=== PATIENT | male | born 1960 | race Caucasian/White ===

== ENCOUNTER 2024-07-24 10:09 | Emergency (ER) | payer OTHER ==
--- OUTSIDE RECORDS SUMMARY | 2024-07-24 10:13 | XMS REPORT | Continuity of Care Document ---
Author Name Unknown Address [address] [facility] [address] [place] [address] [facility] thconnect Address [address] [facility]. 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 Name Role Phone Justyn ST, Jun Padilla Primary Care Physician Michelle ST, Hayder Hope Attending Clinician [phone] Connie Vernon MA Attending Clinician Unavailkim infante ARMSTRONG-HALEIGHLORA Attending Clinician Debra jeffers AHT_TRAN_DUC_N Attending Clinician Unavailable AHT_TRAN_DUC_N Admitting Clinician Unavailable Payers Payer Name Policy Type Policy Number Effective Date Expirati on Date Source [facility] ([facility]) [id number] 2021 00:00:00 Problems Condition Name Condition Details Condition Category Status Onset Date Resolution Date Last Treatment Date Treating Clinician Comments Source Hydrocele of testis Hydrocele of Testis Problem Active 2023-06 0-04 00:00: 00 [facility] Hydrocele Hydrocele Disease Active 9-16 00:00: 00 Lubna Wang Epic 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 sm Disease Active 9-16 00:00: 00 Memoria l Felipe Epic Mixed hyperlipid emia Mixed Hyperlipid emia Problem Active 8-09 00:00: 00 [facility] Swelling of scrotum Swelling of Scrotum Problem Active 8-09 00:00: 00 [facility] Active immunizati on Active Immunizati on Problem Active 8-09 00:00: 00 [facility] History of malignant neoplasm of rectum History of Malignant Neoplasm of Rectum Problem Active 8-09 00:00: 00 [facility] Adult health examinatio n Adult Health Examinatio n Problem Active 8 00:00: 00 [facility] Screening for malignant neoplasm of rectum Screening for Malignant Neoplasm of Rectum Problem Active 8-09 00:00: 00 [facility] Screening for malignant neoplasm of colon Screening for Malignant Neoplasm of Colon Problem Active 809 00:00: 00 [facility] Loose stool Loose Stool Problem Active 9-08 00:00: 00 [facility] Fatigue Fatigue Problem Active 7-14 00:00: 00 [facility] Screening for malignant neoplasm of skin Screening for Malignant Neoplasm of Skin Problem Active 6-06 00:00: 00 [facility] Hypogonadi sm Hypogonadi sm Problem Active 6-06 00:00: 00 [facility] Venereal disease screening Venereal Disease Screening Problem Active 2020-06 2- 00:00: 00 [facility] Screening for malignant neoplasm of prostate Screening for Malignant Neoplasm of Prostate Problem Active 2020-06 2- 00:00: 00 [facility] History of calculus of kidney History of Calculus of Kidney Problem Active 7-28 00:00: 00 [facility] Abnormal anal Papanicola ou smear Abnormal Anal Papanicola ou Smear Problem Active 2019-06 2-17 00:00: 00 [facility] Hyperchole sterolemia Hyperchole sterolemia Problem Active 2017-06 00:00: 00 [facility] Impotence Impotence Problem Active 2017-06 00:00: 00 [facility] History and physical examinatio n, annual for health maintenanc e History and Physical Examinatio n, Annual for Health Maintenanc e Problem Active 10-17 00:00: 00 [facility] 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 Active 2015-06 00:00: 00 [facility] Allergies, Adverse Reactions, Alerts Allergy Name Allergy Type Status Severity Reaction(s) Onset Date Inactive Date Treating Clinician Comments Source No Known Allergie s DA Active U 11-24 00:00: [facility] Social [facility] Social Habit Start Date Stop Date Quantity Comments Source Gender identity 2023-08-27 21:15:21 Identifies as male gender (finding) [facility] Sexual orientation [facility] Smoking Status Start Date Stop Date Source Never Smoker [facility] Tobacco smoking consumption unknown [facility] Medications Ordered Medication Name Filled Medication Name Start Date Stop Date Current Medication? Ordering Clinician Indication Dosage Frequency Signature (SIG) Comments Components Source Biktarvy 50-200-25 MG tablet Biktarvy 50-200-25 MG tablet 02-16 00:00: 00 Yes Lubna hogan [facility] testosteron e cypionate 200 mg/mL intramuscul ar oil Inject 0.5mg IM Q1.5weeks testosteron e cypionate 200 mg/mL intramuscul ar oil Inject 0.5mg IM Q1.5weeks No .5mL Q2W testostero ne cypionate 200 mg/mL intramuscu lar oil Inject 0.5mg IM Q1.5weeks [facility] sildenafil 50 mg tablet 1 tablet by mouth every 72 hours as needed 1 hour prior to sexual activity sildenafil 50 mg tablet 1 tablet by mouth every 72 hours as needed 1 hour prior to sexual activity No sildenafil 50 mg tablet 1 tablet by mouth every 72 hours as needed 1 hour prior to sexual activity [facility] Immunizations Ordered Immunization Name Filled Immunization Name Date Status Comments Source meningococcal MCV4O - 0.5 mL vial meningococcal MCV4O - 0.5 mL vial Unknown Completed [facility] Tdap Tdap Unknown Completed [facility] influenza, injectable, quadrivalent, preservative free influenza, injectable, quadrivalent, preservative free Unknown Completed [facility] pneumococcal conjugate PCV 13 pneumococcal conjugate PCV 13 Unknown Completed [facility] influenza, unspecified formulation influenza, unspecified formulation Unknown Completed [facility] pneumococcal polysaccharide PPV23 pneumococcal polysaccharide PPV23 Unknown Completed [facility] Vital Signs Vital Name Observation Time Observation Value Comments S mer Heart rate 2024-02-20 09:11:00 67 /min [facility] Body temperature 2024-02-20 09:11:00 36.5 Kathi [facility] Body weight 2024-02-20 09:11:00 [facility].94 [facility] in Arterial blood by Pulse oximetry 2024-02-20 09:11:00 97 /min [facility] BP Systolic 2024-01-13 00:00:00 124 mm[Hg] [facility] Body Weight 2024-01-13 00:00:00 156.4 [lb_av] A [facility] BP Diastolic 2024-01-13 00:00:00 75 mm[Hg] [facility] Height 2024-01-13 00:00:00 71 [in_i] [facility] BMI (Body Mass Index) 2024-01-13 00:00:00 21.8 kg/m2 [facility] BMI (Body Mass Index) 2023-07-15 00:00:00 21.5 kg/m2 [facility] Height 2023-07-15 00:00:00 71 [in_i] [facility] Body Weight 2023-07-15 00:00:00 154.2 [lb_av] A [facility] BP Diastolic 2023-07-15 00:00:00 86 mm[Hg] [facility] BP Systolic 2023-07-15 00:00:00 128 mm[Hg] [facility] Procedures Procedure Date / Time Performed Performing Clinician Source US, duplex, scrotum, complete 2024-01-13 00:00:00 [facility] US, echocardiogram 2024-01-13 00:00:00 AI [facility] US, duplex, carotid artery 2024-01-13 00:00:00 [facility] Colonoscopy 2017-06-06 00:00:00 [facility] Encounters Start Date/Time End Date/Time Encounter Type Admission Type Attending [facility] Care Facility Care Department Encounter ID Source 2024-06-15 00:00:00 2024-06-15 00:00:00 Lora Figueroa MD: [address] [place] [id number] , Ph. AHF [place] - AHF - [facility] [id number] [facility] 2024-04-12 00:00:00 2024-04-12 00:00:00 Lora Figueroa MD: [address] [place] [phone] , Ph. AHF CA - AHF - [facility]HT_[facility] [id number] [facility] 2024-03-15 00:00:00 2024-03-15 00:00:00 Lora Figueroa MD: [address] [phone] , Ph. AHF CA - AHF - [facility] [id number] [facility] 2024-03-09 00:00:00 2024-03-09 00:00:00 Lora Figueroa MD: [address] [place] [phone] , Ph. AHF CA - AHF - [facility] [id number] [facility] 2024-02-20 09:30:00 2024-02-20 09:48:02 Consult Hayder Martinez [facility] [place] , [facility] [id number] [facility] 2024-02-15 00:00:00 2024-02-15 11:12:35 Telephone Connie Vernon Christina [facility] [place] , [facility] [id number] Lubna Wang [facility] 2024-01-27 12:38:00 2024-01-27 23:59:00 Outpatient LORA CARRENOBANNER [id number] [facility] 2024-01-13 00:00:00 2024-01-13 00:00:00 Lora Figueroa MD: [address] [place] [phone] , Ph. [facility] CA - AHF - AHT_[facility] [id number] [facility] 2023-07-15 00:00:00 2023-07-15 00:00:00 Lora Figueroa MD: [address] [phone] , Ph. F CA - AHF - AHT_[facility] [id number] [facility] 2023-07-12 00:00:00 2023-07-12 00:00:00 Outpatient AHT_TRAN_DU C_N [facility] [id number] [facility] 2023-04-01 00:00:00 2023-04-01 00:00:00 Outpatient AHT_TRAN_DU C_N [facility] [id number] [facility] 2023-02-06 00:00:00 2023-02-06 00:00:00 Outpatient [facility] [id number] [facility] Results Test Description Test Time Test Comments Results Result Co mments Source [facility] [#/volume] (viral load) in Serum or Plasma by CAROL ANN with probe [id number] 00:00:00* Test Item Value Reference Range Interpretation Comme nts HIV 1 RNA [#/volume] (viral load) in Serum or Plasma by CAROL ANN with probe detection (test code = 18284-3) <20 HIV 1 RNA [Log #/volume] (vi ral load) in Serum or Plasma by CAROL ANN with probe detection (test code = 42041-2) COMMENT [facility] T4 and TSH panel - Serum or [id number] 00:00:00* Test Item Value Reference Range Interpretation Comme nts Thyrotropin [Units/volume] i n Serum or Plasma by Detection limit <= 0.005 mIU/L (test code = 50513-2) 0.701 uIU/mL 0.450-4.500 Thyroxine (T4) free [Mass/volume] in Serum or Plasma (test code = 3024-7) 1.28 NG/dL 0.82-1.77 [facility] (CD4) subset panel - [id number] 00:00:00* Test Item Value Reference Range Interpretation Comme nts CD3+CD4+ (T4 helper) cells [#/volume] in Blood (test code = 54307-1) 521 /uL 359-1519 CD3+CD4+ cells/100 cells in Blood (test code = 8123-2) 24.8 % 30.8-58.5 L Leukocytes [#/volume] in Blo od by Automated count (test code = 6690-2) 6.1 x10e3/uL 3.4-10.8 Erythrocytes [#/volume] in Blood by Automated count (test code = 789-8) 4.87 x10e6/uL 4.14-5.80 Hemoglobin [Mass/volume] in Blood (test code = 718-7) 14.5 g/dL 13.0-17.7 Hematocrit [Volume Fraction] of Blood by Automated count (test code = 4544-3) 44.6 % 37.5-51.0 Erythrocyte mean corpuscular volume [Entitic volume] by Automated count (test code = 787-2) 92 fL 79-97 Erythrocyte mean corpuscular hemoglobin [Entitic mass] by Automated count (test code = 785-6) 29.8 pg 26.6-33.0 Erythrocyte mean corpuscular hemoglobin concentration [Mass/volume] by Automated count (test code = 786-4) 32.5 g/dL 31.5-35.7 Erythrocyte distribution wid th [Ratio] by Automated count (test code = 788-0) 12.6 % 11.6-15.4 Platelets [#/volume] in Bloo d by Automated count (test code = 777-3) 257 x10e3/uL 150-450 Neutrophils/100 leukocytes i n Blood by Automated count (test code = 770-8) 50 % not estab. Lymphocytes/100 leukocytes i n Blood by Automated count (test code = 736-9) 35 % not estab. Monocytes/100 leukocytes in Blood by Automated count (test code = 5905-5) 10 % not estab. Eosinophils/100 leukocytes i n Blood by Automated count (test code = 713-8) 4 % not estab. Basophils/100 leukocytes in Blood by Automated count (test code = 706-2) 1 % not estab. Neutrophils [#/volume] in Bl ood by Automated count (test code = 751-8) 3.1 x10e3/uL 1.4-7.0 Lymphocytes [#/volume] in Bl ood by Automated count (test code = 731-0) 2.1 x10e3/uL 0.7-3.1 Monocytes [#/volume] in Bloo d by Automated count (test code = 742-7) 0.6 x10e3/uL 0.1-0.9 Eosinophils [#/volume] in Bl ood by Automated count (test code = 711-2) 0.2 x10e3/uL 0.0-0.4 Basophils [#/volume] in Bloo d by Automated count (test code = 704-7) 0.0 x10e3/uL 0.0-0.2 Immature granulocytes/100 leukocytes in Blood by Automated count (test code = 02357-1) 0 % not estab. Immature granulocytes [#/volume] in Blood by Automated count (test code = 28876-5) 0.0 x10e3/uL 0.0-0.1 [facility] 2000 panel - Serum or Plasma 2024-06-08 00:00:00* Test Item Value Reference Range Interpretation Comme nts Glucose [Mass/volume] in Ser um or Plasma (test code = 2345-7) 95 mg/dL 70-99 Urea nitrogen [Mass/volume] in Serum or Plasma (test code = 3094-0) 15 mg/dL 8-27 Creatinine [Mass/volume] in Serum or Plasma (test code = 2160-0) 1.22 mg/dL 0.76-1.27 Glomerular filtration rate/1.73 sq M.predicted [Volume Rate/Area] in Serum, Plasma or Blood by Creatinine-based formula (CKD-EPI 2020) (test code = 10297-5) 66 mL/min/1.73 >59 Urea nitrogen/Creatinine [Ma ss Ratio] in Serum or Plasma (test code = 3097-3) 12 10-24 Sodium [Moles/volume] in Ser um or Plasma (test code = 2951-2) 140 mmol/L 134-144 Potassium [Moles/volume] in Serum or Plasma (test code = 2823-3) 4.4 mmol/L 3.5-5.2 Chloride [Moles/volume] in Serum or Plasma (test code = 2075-0) 103 mmol/L 96-106 Carbon dioxide, total [Moles/volume] in Serum or Plasma (test code = 2027-9) 24 mmol/L 20-29 Calcium [Mass/volume] in Ser um or Plasma (test code = 33181-7) 9.4 mg/dL 8.6-10.2 Protein [Mass/volume] in Ser um or Plasma (test code = 2885-2) 7.5 g/dL 6.0-8.5 Albumin [Mass/volume] in Ser um or Plasma (test code = 1751-7) 4.4 g/dL 3.9-4.9 Globulin [Mass/volume] in Serum by calculation (test code = 20037-2) 3.1 g/dL 1.5-4.5 Bilirubin.total [Mass/volume ] in Serum or Plasma (test code = 1974-2) 0.4 mg/dL 0.0-1.2 Alkaline phosphatase [Enzymatic activity/volume] in Serum or Plasma (test code = 6768-6) 141 IU/L 44-121 H Aspartate aminotransferase [Enzymatic activity/volume] in Serum or Plasma (test code = 1920-8) 20 IU/L 0-40 Alanine aminotransferase [Enzymatic activity/volume] in Serum or Plasma (test code = 1742-6) 15 IU/L 0-44 [facility] FoundationCobalamin (Vitamin B12) and folate panel - Serum 2024-06-08 00:00:00* Test Item Value Reference Range Interpretation Comme nts Cobalamin (Vitamin B12) [Mass/volume] in Serum or Plasma (test code = 2132-9) 330 pg/mL 232-1245 Folate [Mass/volume] in Seru m or Plasma (test code = 2284-8) 7.7 NG/mL >3.0 [facility]ine [facility] (CK), [id number] 00:00:00* Test Item Value Reference Range Interpretation Comme nts Creatine kinase [Enzymatic activity/volume] in Serum or Plasma (test code = 2157-6) 78 U/L 41-331 Creatine kinase.MB [Mass/vol ume] in Serum or Plasma (test code = 40641-7) 1.2 NG/mL 0.0-10.4 [facility] total panel [Mass/volume] - Serum or [id number] 00:00:00* Test Item Value Reference Range Interpretation Comme nts Testosterone [Mass/volume] i n Serum or Plasma (test code = 2986-8) 366 NG/dL 264-916 Testosterone Free [Mass/volu me] in Serum or Plasma (test code = 2991-8) 3.9 pg/mL 6.6-18.1 L [facility] CenterProstate specific Ag [Mass/volume] in Serum or Plasma 2024-06-08 00:00:00* Test Item Value Reference Range Interpretation Comme nts Prostate specific Ag [Mass/v olume] in Serum or Plasma (test code = 2857-1) 0.8 NG/mL 0.0-4.0 [facility] Yxorwmcfzi36-Dcfjdzwoyxufjl D3+25-Hydroxyvitamin D2 [Mass/volume] in Serum or [id number] 00:00:00* Test Item Value Reference Range Interpretation Comme nts 25-Hydroxyvitamin D3+25-Hydroxyvitamin D2 [Mass/volume] in Serum or Plasma (test code = 38145-7) 42.1 NG/mL 30.0-100.0 [facility] CenterNuclear Ab [Presence] in [id number] 00:00:00* Test Item Value Reference Range Interpretation Comme nts Nuclear Ab [Presence] in Ser um (test code = 8061-4) NEGATIVE negative [facility] CenterCB W Auto Differential panel - [id number] 00:00:00* Test Item Value Reference Range Interpretation Comme nts Leukocytes [#/volume] in Blo od by Automated count (test code = 6690-2) 6.2 x10e3/uL 3.4-10.8 Erythrocytes [#/volume] in Blood by Automated count (test code = 789-8) 4.31 x10e6/uL 4.14-5.80 Hemoglobin [Mass/volume] in Blood (test code = 718-7) 13.3 g/dL 13.0-17.7 Hematocrit [Volume Fraction] of Blood by Automated count (test code = 4544-3) 39.9 % 37.5-51.0 Erythrocyte mean corpuscular volume [Entitic volume] by Automated count (test code = 787-2) 93 fL 79-97 Erythrocyte mean corpuscular hemoglobin [Entitic mass] by Automated count (test code = 785-6) 30.9 pg 26.6-33.0 Erythrocyte mean corpuscular hemoglobin concentration [Mass/volume] by Automated count (test code = 786-4) 33.3 g/dL 31.5-35.7 Erythrocyte distribution wid th [Ratio] by Automated count (test code = 788-0) 12.1 % 11.6-15.4 Platelets [#/volume] in Bloo d by Automated count (test code = 777-3) 247 x10e3/uL 150-450 Neutrophils/100 leukocytes i n Blood by Automated count (test code = 770-8) 51 % not estab. Lymphocytes/100 leukocytes i n Blood by Automated count (test code = 736-9) 37 % not estab. Monocytes/100 leukocytes in Blood by Automated count (test code = 5905-5) 7 % not estab. Eosinophils/100 leukocytes i n Blood by Automated count (test code = 713-8) 3 % not estab. Basophils/100 leukocytes in Blood by Automated count (test code = 706-2) 1 % not estab. Neutrophils [#/volume] in Bl ood by Automated count (test code = 751-8) 3.1 x10e3/uL 1.4-7.0 Lymphocytes [#/volume] in Bl ood by Automated count (test code = 731-0) 2.3 x10e3/uL 0.7-3.1 Monocytes [#/volume] in Bloo d by Automated count (test code = 742-7) 0.5 x10e3/uL 0.1-0.9 Eosinophils [#/volume] in Bl ood by Automated count (test code = 711-2) 0.2 x10e3/uL 0.0-0.4 Basophils [#/volume] in Bloo d by Automated count (test code = 704-7) 0.1 x10e3/uL 0.0-0.2 Immature granulocytes/100 leukocytes in Blood by Automated count (test code = 52096-8) 1 % not estab. Immature granulocytes [#/volume] in Blood by Automated count (test code = 96718-5) 0.0 x10e3/uL 0.0-0.1 [facility] FoundationComprehensive metabolic 2000 panel - Serum or Plasma 2024-04-07 00:00:00* Test Item Value Reference Range Interpretation Comme nts Glucose [Mass/volume] in Ser um or Plasma (test code = 2345-7) 123 mg/dL 70-99 H Urea nitrogen [Mass/volume] in Serum or Plasma (test code = 3094-0) 13 mg/dL 8-27 Creatinine [Mass/volume] in Serum or Plasma (test code = 2160-0) 1.10 mg/dL 0.76-1.27 Glomerular filtration rate/1.73 sq M.predicted [Volume Rate/Area] in Serum, Plasma or Blood by Creatinine-based formula (CKD-EPI 2020) (test code = 05262-6) 75 mL/min/1.73 >59 Urea nitrogen/Creatinine [Ma ss Ratio] in Serum or Plasma (test code = 3097-3) 12 10-24 Sodium [Moles/volume] in Ser um or Plasma (test code = 2951-2) 143 mmol/L 134-144 Potassium [Moles/volume] in Serum or Plasma (test code = 2823-3) 3.9 mmol/L 3.5-5.2 Chloride [Moles/volume] in Serum or Plasma (test code = 2075-0) 107 mmol/L 96-106 H Carbon dioxide, total [Moles/volume] in Serum or Plasma (test code = 2027-9) 23 mmol/L 20-29 Calcium [Mass/volume] in Ser um or Plasma (test code = 83860-2) 9.0 mg/dL 8.6-10.2 Protein [Mass/volume] in Ser um or Plasma (test code = 2885-2) 6.3 g/dL 6.0-8.5 Albumin [Mass/volume] in Ser um or Plasma (test code = 1751-7) 4.1 g/dL 3.9-4.9 Globulin [Mass/volume] in Serum by calculation (test code = 28207-2) 2.2 g/dL 1.5-4.5 Bilirubin.total [Mass/volume ] in Serum or Plasma (test code = 1975-2) 0.2 mg/dL 0.0-1.2 Alkaline phosphatase [Enzymatic activity/volume] in Serum or Plasma (test code = 6768-6) 122 IU/L 44-121 H Aspartate aminotransferase [Enzymatic activity/volume] in Serum or Plasma (test code = 1920-8) 17 IU/L 0-40 Alanine aminotransferase [Enzymatic activity/volume] in Serum or Plasma (test code = 1742-6) 9 IU/L 0-44 [facility] FoundationTestosterone free and total panel [Mass/volume] - Serum or [id number] 00:00:00* Test Item Value Reference Range Interpretation Comme nts Testosterone [Mass/volume] i n Serum or Plasma (test code = 2986-8) 542 NG/dL 264-916 Testosterone Free [Mass/volu me] in Serum or Plasma (test code = 2991-8) 7.6 pg/mL 6.6-18.1 [facility] FoundationProstate specific Ag [Mass/volume] in Serum or Plasma 2024-04-07 00:00:00* Test Item Value Reference Range Interpretation Comme nts Prostate specific Ag [Mass/v olume] in Serum or Plasma (test code = 2857-1) 0.7 NG/mL 0.0-4.0 [facility] Foundationelectrocardiogram interpretation*2024-01-13 10:00:39* Test Item Value Reference Range Interpretation Comme nts Rate & Rhythm (test code = Rate & Rhythm) Normal Sinus rhythm, HR 63 bpm QRS (test code = QRS) 88 ms CO Interval (test code = CO Interval) 104/140 ms QT Interval (test code = QT Interval) 396/405 ms [facility] FoundationChlamydia trachomatis and Neisseria gonorrhoeae rRNA panel - Specimen by CAROL ANN with probe [id number] 00:00:00* Test Item Value Reference Range Interpretation Comme nts Chlamydia trachomatis rRNA [Presence] in Specimen by CAROL ANN with probe detection (test code = 43868-4) NEGATIVE negative Neisseria gonorrhoeae rRNA [Presence] in Specimen by CAROL ANN with probe detection (test code = 03439-5) [facility]GATIVE negative [facility] [#/volume] (viral load) in Serum or Plasma by CAROL ANN with probe [id number] 00:00:00* Test Item Value Reference Range Interpretation Comme nts HIV 1 RNA [#/volume] (viral load) in Serum or Plasma by CAROL ANN with probe detection (test code = 40855-9) <20 HIV 1 RNA [Log #/volume] (vi ral load) in Serum or Plasma by CAROL ANN with probe detection (test code = 88833-6) COMMENT [facility] 2000 panel - [id number] 00:00:00 * Test Item Value Reference Range Interpretation Comme nts Hepatitis A virus Ab [Presen ce] in Serum by Immunoassay (test code = 62268-8) POSITIVE negative A Hepatitis A virus IgM Ab [Presence] in Serum or Plasma by Immunoassay (test code = 92463-8) NEGATIVE negative Hepatitis B virus surface Ag [Presence] in Serum or Plasma by Immunoassay (test code = 5196-1) NEGATIVE negative Hepatitis B virus surface Ab [Presence] in Serum (test code = 87161-8) REACTIVE Hepatitis B virus core Ab [Presence] in Serum or Plasma by Immunoassay (test code = 31775-2) NEGATIVE negative Laboratory comment [Text] in Report Narrative (test code = 19910-2) RFNOTM Interpretation and review of laboratory results (test code = 89478-6) [facility] Hepatitis C virus IgG Ab [Presence] in Serum or Plasma by Immunoassay (test code = 96069-9) NON REACTIVE non reactive Hepatitis C virus Ab [Presen ce] in Serum or Plasma by Immunoassay (test code = 22860-2) [facility] FoundationT-cell helper (CD4) subset panel - [id number] 00:00:00* Test Item Value Reference Range Interpretation Comme nts CD3+CD4+ (T4 helper) cells [#/volume] in Blood (test code = 23948-0) 540 /uL 359-1519 CD3+CD4+ cells/100 cells in Blood (test code = 8123-2) 21.6 % 30.8-58.5 L Leukocytes [#/volume] in Blo od by Automated count (test code = 6690-2) 7.6 x10e3/uL 3.4-10.8 Erythrocytes [#/volume] in Blood by Automated count (test code = 789-8) 4.76 x10e6/uL 4.14-5.80 Hemoglobin [Mass/volume] in Blood (test code = 718-7) 14.5 g/dL 13.0-17.7 Hematocrit [Volume Fraction] of Blood by Automated count (test code = 4544-3) 44.2 % 37.5-51.0 Erythrocyte mean corpuscular volume [Entitic volume] by Automated count (test code = 787-2) 93 fL 79-97 Erythrocyte mean corpuscular hemoglobin [Entitic mass] by Automated count (test code = 785-6) 30.5 pg 26.6-33.0 Erythrocyte mean corpuscular hemoglobin concentration [Mass/volume] by Automated count (test code = 786-4) 32.8 g/dL 31.5-35.7 Erythrocyte distribution wid th [Ratio] by Automated count (test code = 788-0) 12.5 % 11.6-15.4 Platelets [#/volume] in Bloo d by Automated count (test code = 777-3) 215 x10e3/uL 150-450 Neutrophils/100 leukocytes i n Blood by Automated count (test code = 770-8) 57 % not estab. Lymphocytes/100 leukocytes i n Blood by Automated count (test code = 736-9) 33 % not estab. Monocytes/100 leukocytes in Blood by Automated count (test code = 5905-5) 8 % not estab. Eosinophils/100 leukocytes i n Blood by Automated count (test code = 713-8) 1 % not estab. Basophils/100 leukocytes in Blood by Automated count (test code = 706-2) 1 % not estab. Neutrophils [#/volume] in Bl ood by Automated count (test code = 751-8) 4.4 x10e3/uL 1.4-7.0 Lymphocytes [#/volume] in Bl ood by Automated count (test code = 731-0) 2.5 x10e3/uL 0.7-3.1 Monocytes [#/volume] in Bloo d by Automated count (test code = 742-7) 0.6 x10e3/uL 0.1-0.9 Eosinophils [#/volume] in Bl ood by Automated count (test code = 711-2) 0.1 x10e3/uL 0.0-0.4 Basophils [#/volume] in Bloo d by Automated count (test code = 704-7) 0.0 x10e3/uL 0.0-0.2 Immature granulocytes/100 leukocytes in Blood by Automated count (test code = 74229-0) 0 % not estab. Immature granulocytes [#/volume] in Blood by Automated count (test code = 42085-2) 0.0 x10e3/uL 0.0-0.1 [facility] FoundationCom[facility] metabolic 2000 panel - Serum or Plasma 2024-01-03 00:00:00* Test Item Value Reference Range Interpretation Comme nts Glucose [Mass/volume] in Ser um or Plasma (test code = 2345-7) 98 mg/dL 70-99 Urea nitrogen [Mass/volume] in Serum or Plasma (test code = 3094-0) 15 mg/dL 8-27 Creatinine [Mass/volume] in Serum or Plasma (test code = 2160-0) 1.03 mg/dL 0.76-1.27 Glomerular filtration rate/1.73 sq M.predicted [Volume Rate/Area] in Serum, Plasma or Blood by Creatinine-based formula (CKD-EPI 2020) (test code = 88427-2) 81 mL/min/1.73 >59 Urea nitrogen/Creatinine [Ma ss Ratio] in Serum or Plasma (test code = 3097-3) 15 10-24 Sodium [Moles/volume] in Ser um or Plasma (test code = 2951-2) 138 mmol/L 134-144 Potassium [Moles/volume] in Serum or Plasma (test code = 2823-3) 5.2 mmol/L 3.5-5.2 Chloride [Moles/volume] in Serum or Plasma (test code = 2075-0) 104 mmol/L 96-106 Carbon dioxide, total [Moles/volume] in Serum or Plasma (test code = 2027-) 23 mmol/L 20-29 Calcium [Mass/volume] in Ser um or Plasma (test code = 70252-1) 9.2 mg/dL 8.6-10.2 Protein [Mass/volume] in Ser um or Plasma (test code = 2885-2) 6.9 g/dL 6.0-8.5 Albumin [Mass/volume] in Ser um or Plasma (test code = 1751-7) 4.4 g/dL 3.9-4.9 Globulin [Mass/volume] in Serum by calculation (test code = 54736-0) 2.5 g/dL 1.5-4.5 Bilirubin.total [Mass/volume ] in Serum or Plasma (test code = 1974-2) 0.4 mg/dL 0.0-1.2 Alkaline phosphatase [Enzymatic activity/volume] in Serum or Plasma (test code = 6768-6) 132 IU/L 44-121 H Aspartate aminotransferase [Enzymatic activity/volume] in Serum or Plasma (test code = 1920-8) 27 IU/L 0-40 Alanine aminotransferase [Enzymatic activity/volume] in Serum or Plasma (test code = 1742-6) 33 IU/L 0-44 [facility] FoundationUrinalysis complete W Reflex Culture panel - Urine 2024-01-03 00:00:00* Test Item Value Reference Range Interpretation Comme nts Specific gravity of Urine by Test strip (test code = 5811-5) 1.021 1.005-1.030 pH of Urine by Test strip (test code = 5803-2) 7.0 5.0-7.5 Color of Urine (test code = 5778-6) YELLOW yellow Appearance of Urine (test code = 5767-9) CLEAR clear Leukocyte esterase [Presence ] in Urine by Test strip (test code = 5799-2) NEGATIVE negative Protein [Presence] in Urine by Test strip (test code = 40169-9) TRACE negative/trace Glucose [Presence] in Urine by Test strip (test code = 60532-5) NEGATIVE negative Ketones [Presence] in Urine by Test strip (test code = 2514-8) NEGATIVE negative Hemoglobin [Presence] in Urine by Test strip (test code = 5794-3) NEGATIVE negative Bilirubin.total [Presence] i n Urine by Test strip (test code = 5770-3) NEGATIVE negative Urobilinogen [Mass/volume] i n Urine by Test strip (test code = 41282-5) 0.2 mg/dL 0.2-1.0 Nitrite [Presence] in Urine by Test strip (test code = 5802-4) NEGATIVE negative Microscopic observation [Identifier] in Urine sediment by Light microscopy (test code = 91104-8) SEE BELOW: Leukocytes [#/area] in Urine sediment by Microscopy high power field (test code = 5821-4) 0-5 0-5 Erythrocytes [#/area] in Urine sediment by Microscopy high power field (test code = 82280-5) 0-2 0-2 Epithelial cells [#/area] in Urine sediment by Microscopy high power field (test code = 5787-7) NONE SEEN 0-10 Casts [Presence] in Urine sediment by Light microscopy (test code = 37724-5) NONE SEEN none seen Unidentified crystals [Presence] in Urine sediment by Light microscopy (test code = 5783-6) PRESENT n/a A Crystals [type] in Urine sediment by Light microscopy (test code = 5782-8) CALCIUM OXALATE n/a Bacteria [#/area] in Urine sediment by Microscopy high power field (test code = 5769-5) NONE SEEN none seen/few urinalysis reflex (test code = urinalysis reflex) NOFLEX [facility] FoundationLipid 1996 panel - Serum or [id number] 00:00:00 * Test Item Value Reference Range Interpretation Comme nts Cholesterol [Mass/volume] in Serum or Plasma (test code = 2093-3) 232 mg/dL 100-199 H Triglyceride [Mass/volume] i n Serum or Plasma (test code = 2571-8) 127 mg/dL 0-149 Cholesterol in HDL [Mass/vol ume] in Serum or Plasma (test code = 2085-9) 57 mg/dL >39 Cholesterol in VLDL [Mass/vo lume] in Serum or Plasma by calculation (test code = 79949-7) 23 mg/dL 5-40 Cholesterol in LDL [Mass/vol ume] in Serum or Plasma by calculation (test code = 42423-3) 152 mg/dL 0-99 H [facility] FoundationHIV 1 RNA [#/volume] (viral load) in Serum or Plasma by CAROL ANN with probe [id number] 00:00:00* Test Item Value Reference Range Interpretation Comme nts HIV 1 RNA [#/volume] (viral load) in Serum or Plasma by CAROL ANN with probe detection (test code = 37519-9) <20 HIV 1 RNA [Log #/volume] (vi ral load) in Serum or Plasma by CAROL ANN with probe detection (test code = 70600-2) [facility] - [id number] 00:00:00 * Test Item Value Reference Range Interpretation Comme nts Hepatitis A virus Ab [Presen ce] in Serum by Immunoassay (test code = 84307-5) positive negative A Hepatitis A virus IgM Ab [Presence] in Serum or Plasma by Immunoassay (test code = 90908-9) negative negative Hepatitis B virus surface Ag [Presence] in Serum or Plasma by Immunoassay (test code = 5196-1) negative negative Hepatitis B virus surface Ab [Presence] in Serum (test code = 88334-3) reactive Hepatitis B virus core Ab [Presence] in Serum or Plasma by Immunoassay (test code = 36949-8) negative negative Laboratory comment [Text] in Report Narrative (test code = 13574-0) rfnotm Interpretation and review of laboratory results (test code = 83136-1) [facility] Hepatitis C virus IgG Ab [Presence] in Serum or Plasma by Immunoassay (test code = 62401-7) non reactive non reactive Hepatitis C virus Ab [Presen ce] in Serum or Plasma by Immunoassay (test code = 79674-9) [facility] - [id number] 00:00:00* Test Item Value Reference Range Interpretation Comme nts CD3+CD4+ (T4 helper) cells [#/volume] in Blood (test code = 96725-7) 745 /uL 359-1519 CD3+CD4+ cells/100 cells in Blood (test code = 8123-2) 25.7 % 30.8-58.5 L Leukocytes [#/volume] in Blo od by Automated count (test code = 6690-2) 5.3 x10e3/uL 3.4-10.8 Erythrocytes [#/volume] in Blood by Automated count (test code = 789-8) 4.51 x10e6/uL 4.14-5.80 Hemoglobin [Mass/volume] in Blood (test code = 718-7) 14.0 g/dL 13.0-17.7 Hematocrit [Volume Fraction] of Blood by Automated count (test code = 4544-3) 42.1 % 37.5-51.0 Erythrocyte mean corpuscular volume [Entitic volume] by Automated count (test code = 787-2) 93 fL 79-97 Erythrocyte mean corpuscular hemoglobin [Entitic mass] by Automated count (test code = 785-6) 31.0 pg 26.6-33.0 Erythrocyte mean corpuscular hemoglobin concentration [Mass/volume] by Automated count (test code = 786-4) 33.3 g/dL 31.5-35.7 Erythrocyte distribution wid th [Ratio] by Automated count (test code = 788-0) 12.7 % 11.6-15.4 Platelets [#/volume] in Bloo d by Automated count (test code = 777-3) 203 x10e3/uL 150-450 Neutrophils/100 leukocytes i n Blood by Automated count (test code = 770-8) 33 % not estab. Lymphocytes/100 leukocytes i n Blood by Automated count (test code = 736-9) 55 % not estab. Monocytes/100 leukocytes in Blood by Automated count (test code = 5905-5) 8 % not estab. Eosinophils/100 leukocytes i n Blood by Automated count (test code = 713-8) 3 % not estab. Basophils/100 leukocytes in Blood by Automated count (test code = 706-2) 1 % not estab. Neutrophils [#/volume] in Bl ood by Automated count (test code = 751-8) 1.8 x10e3/uL 1.4-7.0 Lymphocytes [#/volume] in Bl ood by Automated count (test code = 731-0) 2.9 x10e3/uL 0.7-3.1 Monocytes [#/volume] in Bloo d by Automated count (test code = 742-7) 0.4 x10e3/uL 0.1-0.9 Eosinophils [#/volume] in Bl ood by Automated count (test code = 711-2) 0.2 x10e3/uL 0.0-0.4 Basophils [#/volume] in Bloo d by Automated count (test code = 704-7) 0.0 x10e3/uL 0.0-0.2 Immature granulocytes/100 leukocytes in Blood by Automated count (test code = 23566-7) 0 % not estab. Immature granulocytes [#/volume] in Blood by Automated count (test code = 26044-2) 0.0 x10e3/uL 0.0-0.1 [facility] FoundationComprehensive metabolic 2000 panel - Serum or Plasma 2023-07-02 00:00:00* Test Item Value Reference Range Interpretation Comme nts Glucose [Mass/volume] in Ser um or Plasma (test code = 2345-7) 90 mg/dL 70-99 Urea nitrogen [Mass/volume] in Serum or Plasma (test code = 3094-0) 18 mg/dL 8-27 Creatinine [Mass/volume] in Serum or Plasma (test code = 2160-0) 1.03 mg/dL 0.76-1.27 Glomerular filtration rate/1.73 sq M.predicted [Volume Rate/Area] in Serum, Plasma or Blood by Creatinine-based formula (CKD-EPI 2020) (test code = 06625-6) 81 mL/min/1.73 >59 Urea nitrogen/Creatinine [Ma ss Ratio] in Serum or Plasma (test code = 3097-3) 17 10-24 Sodium [Moles/volume] in Ser um or Plasma (test code = 2951-2) 141 mmol/L 134-144 Potassium [Moles/volume] in Serum or Plasma (test code = 2823-3) 4.0 mmol/L 3.5-5.2 Chloride [Moles/volume] in Serum or Plasma (test code = 5-0) 105 mmol/L 96-106 Carbon dioxide, total [Moles/volume] in Serum or Plasma (test code = 2027-) 24 mmol/L 20-29 Calcium [Mass/volume] in Ser um or Plasma (test code = 55923-7) 9.1 mg/dL 8.6-10.2 Protein [Mass/volume] in Ser um or Plasma (test code = 2885-2) 6.9 g/dL 6.0-8.5 Albumin [Mass/volume] in Ser um or Plasma (test code = 1751-7) 4.2 g/dL 3.9-4.9 Globulin [Mass/volume] in Serum by calculation (test code = 66446-1) 2.7 g/dL 1.5-4.5 Albumin/Globulin [Mass Ratio ] in Serum or Plasma (test code = 1759-0) 1.6 1.2-2.2 Bilirubin.total [Mass/volume ] in Serum or Plasma (test code = 1975-2) 0.4 mg/dL 0.0-1.2 Alkaline phosphatase [Enzymatic activity/volume] in Serum or Plasma (test code = 6768-6) 118 IU/L 44-121 Aspartate aminotransferase [Enzymatic activity/volume] in Serum or Plasma (test code = 1920-8) 17 IU/L 0-40 Alanine aminotransferase [Enzymatic activity/volume] in Serum or Plasma (test code = 1742-6) 18 IU/L 0-44 [facility] FoundationUrinalysis complete W Reflex Culture panel - Urine 2023-07-02 00:00:00* Test Item Value Reference Range Interpretation Comme nts Specific gravity of Urine by Test strip (test code = 5811-5) 1.023 1.005-1.030 pH of Urine by Test strip (t est code = 5803-2) 6.0 5.0-7.5 Color of Urine (test code = 5778-6) yellow yellow Appearance of Urine (test co de = 5767-9) clear clear Leukocyte esterase [Presence ] in Urine by Test strip (test code = 5799-2) negative negative Protein [Presence] in Urine by Test strip (test code = 04186-0) negative negative/trace Glucose [Presence] in Urine by Test strip (test code = 96359-4) negative negative Ketones [Presence] in Urine by Test strip (test code = 2514-8) negative negative Hemoglobin [Presence] in Uri ne by Test strip (test code = 5794-3) negative negative Bilirubin.total [Presence] i n Urine by Test strip (test code = 5770-3) negative negative Urobilinogen [Mass/volume] i n Urine by Test strip (test code = 00902-3) 0.2 mg/dL 0.2-1.0 Nitrite [Presence] in Urine by Test strip (test code = 5802-4) negative negative Microscopic observation [Identifier] in Urine sediment by Light microscopy (test code = 58983-9) see below: Leukocytes [#/area] in Urine sediment by Microscopy high power field (test code = 5821-4) 0-5 0-5 Erythrocytes [#/area] in Uri ne sediment by Microscopy high power field (test code = 29355-4) none seen 0-2 Epithelial cells [#/area] in Urine sediment by Microscopy high power field (test code = 5787-7) none seen 0-10 Casts [Presence] in Urine se diment by Light microscopy (test code = 56840-5) none seen none seen Bacteria [#/area] in Urine sediment by Microscopy high power field (test code = 5769-5) none seen none seen/few urinalysis reflex (test code = urinalysis reflex) noflex [facility] FoundationLipid 1996 panel - Serum or [id number] 00:00:00 * Test Item Value Reference Range Interpretation Comme nts Cholesterol [Mass/volume] in Serum or Plasma (test code = 2093-3) 181 mg/dL 100-199 Triglyceride [Mass/volume] i n Serum or Plasma (test code = 2571-8) 187 mg/dL 0-149 H Cholesterol in HDL [Mass/vol ume] in Serum or Plasma (test code = 2085-9) 41 mg/dL >39 Cholesterol in VLDL [Mass/vo lume] in Serum or Plasma by calculation (test code = 01354-0) 33 mg/dL 5-40 Cholesterol in LDL [Mass/vol ume] in Serum or Plasma by calculation (test code = 31555-5) 107 mg/dL 0-99 H [facility] FoundationTestosterone free and total panel [Mass/volume] - Serum or [id number] 00:00:00* Test Item Value Reference Range Interpretation Comme nts Testosterone [Mass/volume] i n Serum or Plasma (test code = 2986-8) 208 NG/dL 264-916 L Testosterone Free [Mass/volu me] in Serum or Plasma (test code = 2991-8) 1.8 pg/mL 6.6-18.1 L [facility] FoundationProstate specific Ag [Mass/volume] in Serum or Plasma 2023-07-02 00:00:00* Test Item Value Reference Range Interpretation Comme nts Prostate specific Ag [Mass/v olume] in Serum or Plasma (test code = 2857-1) 0.5 NG/mL 0.0-4.0 [facility] Notes Date/Time Note Provider Source [id number] 10:00:16 [place] [id number] 10:00:16* Hayder Martinez MD - 02/20/2024 9:30 AM CDT UROLOGY: Hayder Martinez ASSESSMENT/PLAN Problem List Items Addressed This Visit Hydrocele - Primary Male hypogonadism PMH: HIV 1. Hydrocele - had TON at 01/2024 small right hydrocele, no masses - Discussed risks and benefits of hydrocelectomy and reasons for surgery; on exam he has small right hydrocele and not bothered, had it for 6 months - If enlarges or issues with infections then follow up but otherwise he elects to observe for now 2. Male hypogonadism - 208 at [facility] - been low in past had been on cream but no effect and too expensive - he will call if he wants to try injections in which we will repeat labs 3. PSA - PSA 0.5 at [facility] No results found for: "PSA", "CREATININE" Roopa Hills is a 63 y.o. male with right hydrocele. Started 6 months ago. Unchanged in size. No pain. Denies trauma. Also has fatigue, decreased muscle mass and libido. Been on TRT in the past. Patient Active Problem List Diagnosis Date Noted Hydrocele 02/20/2024 Male hypogonadism 02/20/2024 PMH/PSH: Reviewed Allergies: Reviewed Social History: Reviewed Family History: Reviewed ROS- Negative for 10 systems besides what was stated in the HPI. Objective EXAM: General: No acute distress Head: Atraumatic Eyes: Conjunctiva clear Neck: Supple Respirations: even and unlabored Extremities: Warm and well perfused Skin: Dry, intact No results found for: "NA", "K", "CL", "CO2", "BUN", "CREATININE" No results found for: "WBC", "HGB", "HCT", "MCV", "PLT" Hayder Martinez MD [facility] CenterFgygrda0034-67-17 10:00:16 [facility] CenterXcrwerz8969-08-11 11:12:43Upcoming Encounters Health Maintenance Due Date Last Done Comments CT Colonography 1959 FIT-DNA 1959 FIT 1959 FOBT 1960 Lipid Panel 1960 Medicare Initial Physical (IPPE) 1960 Sigmoidoscopy 1959 DTaP/Tdap/Td Vaccines (1 - Tdap) 1978 Zoster Vaccines (1 of 2) 2009 Respiratory Syncytial Virus (RSV) or >=60 (1 - 1-dose 60+ series) 2019 Influenza Vaccine (#1) 2024 Colonoscopy 09/03/2024 09/03/2014, 09/03/2014 Colorectal Cancer Screening 09/03/2024 HIB Vaccines Aged Out No longer eligi ble based on patient's age to complete this topic HPV Vaccines Aged Out No longer eligi ble based on patient's age to complete this topic Hepatitis A Vaccines Aged Out No long er eligible based on patient's age to complete this topic Hepatitis B Vaccines Aged Out No long er eligible based on patient's age to complete this topic IPV Vaccines Aged Out No longer eligi ble based on patient's age to complete this topic Meningococcal Vaccine Aged Out No yazmni jorgito eligible based on patient's age to complete this topic Pneumococcal Vaccine: Pediatrics (0 to 5 Years) and At-Risk Patients (6 to 64 Years) Aged Out No longer eligible b ased on patient's age to complete this topic Rotavirus Vaccines Aged Out No longer eligible based on patient's age to complete this topic [facility] CenterBodkvli2167-05-30 11:12:43 [facility] CenterGhyhaze5285-70-48 11:11:41 Pt called to see if we have scrotal US results, received. Provided pt with fax number for PSA results. [facility] CenterVshrztv1352-61-54 12:18:[id number] [facility] PATIENT NAME: ROOPA HILLS ADMIT DATE: 11/30/18 ACCOUNT NO: [id number] ROOM NO: AGE: 58 REPORT TYPE: ENDOSCOPY REPORT SEX: M DATE OF : 58 ADMITTING PHYSICIAN: ATTENDING PHYSICIAN:Mor Faith MD Patient Name: Roopa Hills Attending MD: Mor Faith MD Procedure Date: 11/30/2018 12:18 PM Date of : 1960 Procedure: Colonoscopy Pre Procedure Diagnosis: Personal history of malignant rectal neoplasm, Last colonoscopy: 2015 Assistants: Mor Faith MD Referring MD: Jun Alejandra, Anesthesia: Monitored Anesthesia Care Procedure: Pre-Anesthesia Assessment: - Prior to the procedure, a History and Physical was performed, and patient medications and allergies were reviewed. The patient's tolerance of previous anesthesia was also reviewed. The risks and benefits of the procedure and the sedation options and risks were discussed with the patient. All questions were answered, and informed consent was obtained. Prior Anticoagulants: The patient has taken no previous anticoagulant or antiplatelet agents. ASA Grade Assessment: III - A patient with severe systemic disease. After reviewing the risks and benefits, the patient was deemed in satisfactory condition to undergo the procedure. The benefits, risks, and alternatives to the procedure were discussed and informed consent was obtained from the patient. I've assesed the patient on this date and reviewed the medical history, drug history, and previous anesthesia experience. After obtaining informed consent, the scope was passed under direct vision. Throughout the procedure, the patient's blood pressure, pulse, and oxygen saturations were monitored continuously. The Colonoscope was introduced through the anus and advanced to the cecum, identified by the appendiceal orifice. The colonoscopy was performed without difficulty. The patient tolerated the procedure well. The quality of the bowel preparation was good. Post Procedure Findings: The digital rectal exam was normal. PATIENT NAME: ROOPA HILLS There was evidence of a prior end-to-end colo-colonic anastomosis in the recto-sigmoid colon. This was patent. Complications: No immediate complications. Estimated Blood Loss: Estimated blood loss was minimal. Post Procedure Diagnosis: - Patent end-to-end colo-colonic anastomosis. - No specimens collected. Recommendation: - Patient has a contact number available for emergencies. The signs and symptoms of potential delayed complications were discussed with the patient. Return to normal activities tomorrow. Written discharge instructions were provided to the patient. - Discharge patient to home. - Resume previous diet. - Continue present medications. - Repeat colonoscopy in 5 years for surveillance. - Return to my office in 2 weeks. Mor Faith MD 11/30/2018 12:58:18 PM This report has been signed electronically. Number of Addenda: 0 Note Initiated On: 11/30/2018 12:18 PM Procedure Code(s): --- Professional --- 90646, Colonoscopy, flexible; diagnostic, including collection of specimen(s) by brushing or washing, when performed (separate procedure) Diagnosis Code(s): --- Professional --- Z98.0, Intestinal bypass and anastomosis status Z85.048, Personal history of other malignant neoplasm of rectum, rectosigmoid junction, and anus CPT copyright 2017 [employer]. All rights reserved. The codes documented in this report are preliminary and upon inpatient coder review may be revised to meet current compliance requirements. Scope In: Scope Out: at 1258 PATIENT NAME: REINIERROOPA
[2024-07-24] MEDS ORDERED: MORPHINE 4 MG/ML SYR ONE ×2 (10:29→14:24)
[2024-07-24] MEDS ORDERED: TAMSULOSIN 0.4 MG SR CAP ONE (10:29)
[2024-07-24] MEDS ORDERED: ONDANSETRON 4 MG/2 ML VIAL ONE (10:29)
[2024-07-24] MEDS ORDERED: MAGNESIUM SULFATE 1 gm IVPB 1 GM/100 ML BAG IV ONE (10:30)
[2024-07-24 10:56] LABS: Absolute Lymphocytes (CBC) 1.5 K/uL (0.7-4.9); Absolute Monocytes 0.4 K/uL (0.1-1.3); Basophils % 0.3 % (0-1.3); Eosinophils % 0.5 % (0-4.4); Hematocrit 47.3 % (39.6-49.0); Hemoglobin 15.5 g/dL (13.6-17.9); Lymphocytes % 16.6 % (15.3-44.8); MCH 30.3 pg (27.0-35.0); MCHC 32.7 g/dL (32.0-36.0); MCV 92.5 fL (80-100); MPV 8.3 fL (7.6-11.3); Monocytes % 4.7 % (3.3-12.3); Neutrophils % 77.9 % (41.7-73.7); Nucleated Red Blood Cells % 0.1 % (0-0); Platelets 311 thou/uL (152-406); RBC Red Blood Cell Count 5.12 M/uL (4.33-5.43); Red Cell Distribution Width 14.2 % (12.1-15.2)
[2024-07-24 11:01] LABS: Anion Gap 5.3 mEq/L (5.0-15.0); Potassium 4.3 mEq/L (3.5-5.1)
--- NOTE | 2024-07-24 11:12 | RAD REPORT ---
EXAMINATION: Stone Protocol CLINICAL INDICATION: Abdominal pain. Left flank pain TECHNIQUE: CT abdomen and pelvis was performed, without IV contrast, as per department protocol. Oral contrast not given. Axial, sagittal and coronal reconstructions were obtained. One or more of the following dose reduction techniques were used: Automated exposure control, adjustment of the mA and k V according to the patient size, and iterative reconstruction. Unless otherwise specified, incidental findings do not require dedicated imaging follow-up. COMPARISON: No prior exam. FINDINGS: The lack of intravenous and oral contrast limits the sensitivity of this exam for evaluation of solid visceral organs, vascular structures, and bowel Multiple, bilateral renal calculi. Mild to moderate left hydronephrosis. Submillimeter calculus mid left ureter. Stranding within the adjacent ureteral fat. Liver, spleen, pancreas and adrenals grossly normal No evidence of diverticulitis. Prostatic calcifications IMPRESSION: Bilateral renal calculi 7 mm calculus mid left ureter resulting in mild to moderate hydronephrosis
--- NOTE | 2024-07-24 14:54 | EDPHYS ---
Physician Documentation [facility] Name: Abraham Craig Age: 64 yrs Sex: Male : 1960 Arrival Date: 07/24/2024 Time: 10:09 Bed 6 Private MD: ED Physician Drake Church HPI: 07/24 10:22 This 64 yrs old Male presents to ER via Unassigned with complaints of Possible Kidney rn Stone. 10:22 The patient complains of pain in the left mid back. Onset: The symptoms/episode rn began/occurred this morning. Modifying factors: The symptoms are alleviated by nothing. the symptoms are aggravated by nothing. Severity of pain: At its worst the pain was moderate in the emergency department the pain is unchanged. The patient has experienced similar episodes in the past. Patient reports left flank pain that began this morning. Identical to previous history of kidney stones. No fever or chills. No vomiting. No hematuria. There is some radiation to the right inguinal region. Has been able to pass all stones except 1 in the past.. Historical: - Allergies: 10:24 No Known Allergies; iw - PMHx: 10:24 HIV positive; Kidney stone; iw - PSHx: 10:24 None; iw - Immunization history:: Adult Immunizations not up to date. - Infectious Disease History:: Denies. - Family history:: not pertinent. - Social history:: Smoking status: Patient denies any tobacco usage or history of. - Hospitalizations: : No recent hospitalization is reported. ROS: 10:22 Constitutional: Negative for fever, chills, and weight loss, Cardiovascular: Negative rn for chest pain, palpitations, and edema, Respiratory: Negative for shortness of breath, cough, wheezing, and pleuritic chest pain, Abdomen/GI: Positive for left lower quadrant abdominal pain Back: Positive for left flank pain MS/Extremity: Negative for injury and deformity, Skin: Negative for injury, rash, and discoloration, Neuro: Negative for headache, weakness, numbness, tingling, and seizure, Exam: 10:22 Constitutional: This is a well developed, well nourished patient who is awake, alert, rn appears uncomfortable, grabbing left flank Cardiovascular: Regular rate and rhythm. No pulse deficits. Respiratory: No increased work of breathing, no retractions or nasal flaring. Abdomen/GI: Soft, nontender, no peritoneal signs Back: No CVA tenderness Vital Signs: 10:23 BP 128 / 90; Pulse 65; Resp 16; Temp 97.6; Pulse Ox 100% ; Weight 68.04 kg; Height 5 iw ft. 10 in. ; Pain 8/10; 12:00 BP 112 / 68; Pulse 59; Resp 18; Pulse Ox 100% ; ph 13:00 BP 114 / 66; Pulse 63; Resp 18; Pulse Ox 99% on R/A; ph 14:28 BP 113 / 63; Pulse 73; Resp 18; Pulse Ox 99% on R/A; ph 10:23 Body Mass Index 21.52 (68.04 kg, 177.8 cm) iw 10:23 Pain Scale: Adult iw MDM: 10:13 Medical Screening Exam initiated rn 14:52 Differential diagnosis: nephrolithiasis, UTI. Data reviewed: vital signs, nurses notes, cyanide furnace operator test result(s), radiologic studies, CT scan, and as a result, I will discharge patient. Counseling: I had a detailed discussion with the patient and/or guardian regarding the historical points, exam findings, and any diagnostic results supporting the discharge/admit diagnosis, lab results, radiology results, the need for outpatient follow up, to return to the emergency department if symptoms worsen or persist or if there are any questions or concerns that arise at home. Response to treatment: the patient's symptoms have markedly improved after treatment, and as a result, I will discharge patient. Special discussion: I discussed with the patient/guardian in detail that at this point there is no indication for admission to the hospital. It is understood, however, that if the symptoms persist or worsen the patient needs to return immediately for re-evaluation. ED course: Patient with 7 mm left mid ureteral stone. Patient reports has been able to pass the majority of his stones except for 1. Pain controlled, will discharge home and attempt passage at home with as needed medications. Patient agrees with this plan and return precautions given and understood.. 07/24 10:21 Order name: CBC with Diff; Complete Time: 11:12 rn 07/24 10:21 Order name: Basic Metabolic Panel; Complete Time: 11:12 rn 07/24 10:13 Order name: CT Stone Protocol; Complete Time: 11: rn 07/24 10:21 Order name: IV Start; Complete Time: 10:45 rn Administered Medications: 10:45 Drug: morphine IVP or IV 4 mg IVP once over 4 mins Route: IVP; Infused Over: 4 mins; kc6 Site: right antecubital; 11:30 Follow up: Response: No adverse reaction; Pain is decreased kc6 10:45 Drug: Magnesium Sulfate IVPB 1 grams IVPB once over 1 hrs Route: IVPB; Infused Over: 1 kc6 hrs; Site: right antecubital; 15:53 Follow up: Response: No adverse reaction; IV Status: Completed infusion; IV Intake: kc6 100ml 10:45 Drug: Flomax PO 0.4 mg PO once Route: PO; kc6 11:30 Follow up: Response: No adverse reaction kc6 10:45 Drug: Ondansetron IVP 4 mg IVP once; over 2 minutes Route: IVP; Site: right antecubital;kc6 11:30 Follow up: Response: No adverse reaction kc6 14:27 Not Given (Other Intervention Used): morphineor iv 2 mg IVP once over 4 mins ph 14:27 Drug: morphine IVP or IV 4 mg IVP once over 4 mins Route: IVP; Infused Over: 4 mins; ph Site: right antecubital; 15:53 Follow up: Response: No adverse reaction; Pain is decreased; RASS: Alert and Calm (0) kc6 Disposition Summary: 07/24/24 14:53 Discharge Ordered Notes: Location: Home rn Problem: new rn Symptoms: have improved rn Condition: Stable rn Diagnosis - Urinary calculus, unspecified rn Followup: rn - With: Private Physician - When: As needed - Reason: Recheck today's complaints, Re-evaluation by your physician Discharge Instructions: - Discharge Summary Sheet rn - Kidney Stones rn - Renal Colic rn Forms: - Medication Reconciliation Form rn - Antibiotic referral rn - Prescription Opioid Use rn - Patient Portal Instructions rn - Leadership Thank You Letter rn Prescriptions: - Flomax 0.4 mg Oral capsule - take 1 capsule ORAL route every 24 hours As needed; 10 capsule; Refills: 0, rn Product Selection Permitted - ondansetron 4 mg Oral Tablet,disintegrating - take 1 tablet ORAL route every 8 hours As needed; 12 tablet; Refills: 0, rn Product Selection Permitted - Cipro 500 mg Oral Tablet - take 1 tablet ORAL route every 12 hours for 7 days; 14 tablet; Refills: 0, rn Product Selection Permitted - Tramadol 50 mg Oral Tablet - take 1 tablet ORAL route every 8 hours as needed; 12 tablet; Refills: 0, rn Product Selection Permitted Signatures: Dispatcher [employer] EDSherry Glass RN Drake Cordova MD MD rn Hall, Patricia, RN RN [facility], FATOUMATA Cates RN kc6 Corrections: (The following items were deleted from the chart) 10: 10:13 Urinalysis+U.LAB.BRZ ordered. EDMS EDMS 10: 10:13 Stone Protocol+CT.RAD.BRZ ordered. EDMS EDMS
--- NOTE | 2024-07-24 14:54 | ER ---
Nurse's Notes [facility] Name: Abraham Craig Age: 64 yrs Sex: Male : 1960 Arrival Date: 07/24/2024 Time: 10:09 Bed 6 Private MD: Diagnosis: Urinary calculus, unspecified Presentation: 07/24 10:23 Chief complaint: Patient states: left sided kidney stone, has hx of kidney stones , iw pain started this morning. Coronavirus screen: At this time, the client does not indicate any symptoms associated with coronavirus-19. Ebola Screen: No symptoms or risks identified at this time. Initial Sepsis Screen: Does the patient meet any 2 criteria? No. Patient's initial sepsis screen is negative. Does the patient have a suspected source of infection?. Risk Assessment: Do you want to hurt yourself or someone else? Patient reports no desire to harm self or others. Onset of symptoms was July 24, 2024. 10:23 Method Of Arrival: Ambulatory iw 10:23 Acuity: ZORAN 3 iw Historical: - Allergies: 10:24 No Known Allergies; iw - PMHx: 10:24 HIV positive; Kidney stone; iw - PSHx: 10:24 None; iw - Immunization history:: Adult Immunizations not up to date. - Infectious Disease History:: Denies. - Family history:: not pertinent. - Social history:: Smoking status: Patient denies any tobacco usage or history of. - Hospitalizations: : No recent hospitalization is reported. Screenin:46 [facility] ED Fall Risk Assessment (Adult) History of falling in the last 3 months, kc6 including since admission No falls in past 3 months (0 pts) Confusion or Disorientation No (0 pts) Intoxicated or Sedated No (0 pts) Impaired Gait No (0 pts) Mobility Assist Device Used No (0 pt) Altered Elimination No (0 pt) Score/Fall Risk Level 0 - 2 = Low Risk Oriented to surroundings, Maintained a safe environment, Educated pt \T\ family on fall prevention, incl call for assistance when getting out of bed. Abuse screen: Denies threats or abuse. Denies injuries from another. Nutritional screening: No deficits noted. Tuberculosis screening: No symptoms or risk factors identified. Assessment: 11:00 General: Appears in no apparent distress. uncomfortable, slender. Pain: Complains of ph pain in left mid back. Neuro: Level of Consciousness is awake, alert, obeys commands, Oriented to person, place, time, situation. Cardiovascular: Capillary refill < 3 seconds in bilateral fingers Patient's skin is warm and dry. Respiratory: Airway is patent Respiratory effort is even, unlabored. GI: Bowel sounds present X 4 quads. Abd is soft X 4 quads Reports lower abdominal pain. : Reports pain in left in lower back. Derm: Skin is pink, warm \T\ dry. 12:00 Reassessment: Patient appears in no apparent distress at this time. No changes from kc6 previously documented assessment. Patient and/or family updated on plan of care and expected duration. Pain level reassessed. Patient is alert, oriented x 3, equal unlabored respirations, skin warm/dry/pink. 13:00 Reassessment: Patient appears in no apparent distress at this time. No changes from kc6 previously documented assessment. Patient and/or family updated on plan of care and expected duration. Pain level reassessed. Patient is alert, oriented x 3, equal unlabored respirations, skin warm/dry/pink. 14:00 Reassessment: Patient appears in no apparent distress at this time. No changes from kc6 previously documented assessment. Patient and/or family updated on plan of care and expected duration. Pain level reassessed. Patient is alert, oriented x 3, equal unlabored respirations, skin warm/dry/pink. 15:00 Reassessment: Patient appears in no apparent distress at this time. No changes from kc6 previously documented assessment. Patient and/or family updated on plan of care and expected duration. Pain level reassessed. Patient is alert, oriented x 3, equal unlabored respirations, skin warm/dry/pink. Patient states feeling better. Patient states symptoms have improved. Vital Signs: 10:23 BP 128 / 90; Pulse 65; Resp 16; Temp 97.6; Pulse Ox 100% ; Weight 68.04 kg; Height 5 iw ft. 10 in. ; Pain 8/10; 12:00 BP 112 / 68; Pulse 59; Resp 18; Pulse Ox 100% ; ph 13:00 BP 114 / 66; Pulse 63; Resp 18; Pulse Ox 99% on R/A; ph 14:28 BP 113 / 63; Pulse 73; Resp 18; Pulse Ox 99% on R/A; ph 10:23 Body Mass Index 21.52 (68.04 kg, 177.8 cm) iw 10:23 Pain Scale: Adult iw ED Course: 10:12 Patient arrived in ED. im 10:12 Drake Church MD is Attending Physician. rn 10:24 Triage completed. iw 10:25 Arm band placed on. iw 10:44 Barbra Granda, RN is Primary Nurse. ph 10:46 Patient has correct armband on for positive identification. Bed in low position. Call kc6 light in reach. Side rails up X 1. Pulse ox on. NIBP on. Door closed. Noise minimized. Lights dimmed. Warm blanket given. Pillow given. 10:46 Initial lab(s) drawn, by me, sent to lab. Inserted saline lock: 20 gauge in right kc6 antecubital area, using aseptic technique. Blood collected. Flushed with 10 mL NS. Patient maintains SpO2 saturation greater than 95% on room air. 10:51 CT Stone Protocol In Process Unspecified. EDMS 15:54 No provider procedures requiring assistance completed. IV discontinued, intact, kc6 bleeding controlled, No redness/swelling at site. Pressure dressing applied. Administered Medications: 10:45 Drug: morphine IVP or IV 4 mg IVP once over 4 mins Route: IVP; Infused Over: 4 mins; kc6 Site: right antecubital; 11:30 Follow up: Response: No adverse reaction; Pain is decreased kc6 10:45 Drug: Magnesium Sulfate IVPB 1 grams IVPB once over 1 hrs Route: IVPB; Infused Over: 1 kc6 hrs; Site: right antecubital; 15:53 Follow up: Response: No adverse reaction; IV Status: Completed infusion; IV Intake: kc6 100ml 10:45 Drug: Flomax PO 0.4 mg PO once Route: PO; kc6 11:30 Follow up: Response: No adverse reaction kc6 10:45 Drug: Ondansetron IVP 4 mg IVP once; over 2 minutes Route: IVP; Site: right antecubital;kc6 11:30 Follow up: Response: No adverse reaction kc6 14:27 Not Given (Other Intervention Used): morphineor iv 2 mg IVP once over 4 mins ph 14:27 Drug: morphine IVP or IV 4 mg IVP once over 4 mins Route: IVP; Infused Over: 4 mins; ph Site: right antecubital; 15:53 Follow up: Response: No adverse reaction; Pain is decreased; RASS: Alert and Calm (0) kc6 Medication: 14:30 VIS not applicable for this client. ph Intake: 15:53 IV: 100ml; Total: 100ml. kc6 Outcome: 14:53 Discharge ordered by . rn 15:55 Discharged to home ambulatory, kc6 15:55 Condition: improved 15:55 Discharge instructions given to patient, Instructed on discharge instructions, follow up and referral plans. medication usage, Demonstrated understanding of instructions, follow-up care, medications, Prescriptions given X 4, 15:55 Patient left the ED. kc6 Signatures: Dispatcher [employer] EDMS Sherry Hutchinson, RN Drake Cordova MD MD rn Hall, Patricia, RN RN ph Campbell, Kaitlyn, RN RN kc Edith Coronado
[2024-07-24 18:18] VITALS: TEMP 97.6
[2024-07-24 18:20] VITALS: O2SAT 99
[2024-07-24 18:22] VITALS: BP 113/63
== END 2024-07-24 15:55 | disposition home or self-care (01) ==
LOC: ER 10:09
DX: N20.9 Urinary calculus, unspecified (principal); Z87.442 Personal history of urinary calculi; Z21 Asymptomatic human immunodeficiency virus [HIV] infection status
CPT/HCPCS: 85025; 80048; 36415; 76377; 74176; J3475; J2405

== ENCOUNTER 2024-07-28 02:39 | Emergency (ER) | payer OTHER ==
--- OUTSIDE RECORDS SUMMARY | 2024-07-28 02:42 | XMS REPORT | Continuity of Care Document ---
Author Name Unknown Address [address] [facility] [address] [place] [address] [facility] thconnect Address [address] [facility] [place] [address] Care Team Providers Care Supervisor Operations Name Role Phone Justyn ST, Jun Padilla Primary Care Physician Michelle ST, Hayder Hope Attending Clinician [phone] Connie Vernon MA Attending Clinician Unavailkim infante ARMSTRONG-HALEIGHLORA Attending Clinician Unavai lable AHT_TRAN_DUC_N Attending Clinician Unavailable AHT_TRAN_DUC_N Admitting Clinician Unavailable Payers Payer Name Policy Type Policy Number Effective Date Expirati on Date Source [facility]KAYLA [facility] ([facility]) [id number] 2021 00:00:00 Problems Condition Name Condition Details Condition Category Status Onset Date Resolution Date Last Treatment Date Treating Clinician Comments Source Hydrocele of testis Hydrocele of Testis Problem Active 2023-06 0 00:00: 00 [facility] Hydrocele Hydrocele Disease Active 02-19 00:00: 00 Lubna Wang Epic 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 sm Disease Active 2024-0 9-16 00:00: 00 Memoria l Felipe Epic [...] for Malignant Neoplasm of Rectum Problem Active 809 00:00: 00 [facility] [...] Hyperchole sterolemia Hyperchole sterolemia Problem Active 2017-06 1-19 00:00: 00 [facility] [...] s DA Active U 11-24 00:00: 00 [facility] Social History Social Habit Start Date Stop Date Quantity Comments Source Gender identity 2023-08-27 21:15:21 Identifies as male gender (finding) [facility] Sexual orientation [facility] Smoking Status Start Date Stop Date Source Never Smoker [facility] Tobacco smoking consumption unknown [facility] Medications Ordered Medication Name Filled Medication Name Start Date Stop Date Current Medication? Ordering Clinician Indication Dosage Frequency Signature (SIG) Comments Components Source Biktarvy 50-200-25 MG tablet Biktarvy 50-200-25 MG tablet 02-16 00:00: 00 Yes Lubna hogan [facility] testosteron e cypionate 200 mg/mL intramuscul [...] [facility] Tdap Tdap Unknown Completed [facility] influenza, injectable, quadrivalent, preservative free influenza, injectable, quadrivalent, preservative free Unknown Completed [facility] pneumococcal conjugate PCV 13 pneumococcal conjugate PCV 13 Unknown Completed [facility] influenza, unspecified formulation influenza, unspecified formulation Unknown Completed [facility] pneumococcal polysaccharide PPV23 pneumococcal polysaccharide PPV23 Unknown Completed [facility] Vital Signs Vital Name Observation Time Observation Value Comments S mer Heart rate 2024-02-20 09:11:00 67 [facility] temperature 2024-02-20 09:11:00 36.5 Kathi [facility] Body weight 2024-02-20 09:11:00 71.94 kg [facility] Oxygen saturation in Arterial blood by Pulse oximetry 2024-02-20 09:11:00 97 /min [facility] BP Systolic 2024-01-13 00:00:00 124 mm[Hg] [facility] Body Weight 2024-01-13 00:00:00 156.4 [lb_av] A [facility] BP Diastolic 2024-01-13 00:00:00 75 mm[Hg] [facility] Height 2024-01-13 00:00:00 71 [in_i] [facility] BMI (Body Mass Index) 2024-01-13 00:00:00 21.8 kg/m2 [facility] BMI (Body Mass Index) 2023-07-15 00:00:00 21.5 kg/m2 [facility] Height 2023-07-15 00:00:00 71 [in_i] [facility] Body Weight 2023-07-15 00:00:00 154.2 [lb_av] A [facility] BP Diastolic 2023-07-15 00:00:00 86 mm[Hg] [facility]ID [facility] BP Systolic 2023-07-15 00:00:00 128 mm[Hg] [facility] Procedures Procedure Date / Time Performed Performing Clinician Source US, duplex, scrotum, complete 2024-01-13 00:00:00 [facility] US, echocardiogram 2024-01-13 00:00:00 AI [facility] US, duplex, carotid artery 2024-01-13 00:00:00 [facility] Colonoscopy 2017-06-06 00:00:00 AIDS [facility] Encounters Start Date/Time End Date/Time Encounter Type Admission Type Attending [facility] Care Facility Care Department Encounter ID Source 2024-06-15 00:00:00 2024-06-15 00:00:00 Lora Figueroa MD: [address] [place] [phone] , Ph. AHF [facility] - AHF - [facility] [id number] [facility] 2024-04-12 00:00:00 2024-04-12 00:00:00 Lora Figueroa MD: [address] , Ph. AHF CA - AHF - [facility] [id number] [facility] 2024-03-15 00:00:00 2024-03-15 00:00:00 Lora Figueroa MD: [address] [address] , Ph. AHF CA - AHF - [facility] [id number] [facility] 2024-03-09 00:00:00 2024-03-09 00:00:00 Lora Figueroa MD: [address] [address] , Ph. AHF CA - AHF - [facility] [id number] [facility] 2024-02-20 09:30:00 2024-02-20 09:48:02 Consult Hayder Martinez [facility] [place] , [facility] [id number] [facility] 2024-02-15 00:00:00 2024-02-15 11:12:35 Telephone Connie Vernon Christina [facility] [place] , [facility] [id number] Lubna Wang [facility] 2024-01-27 12:38:00 2024-01-27 23:59:00 [id number] 2024-01-13 00:00:00 2024-01-13 00:00:00 Lora Figueroa MD: [address] [place] [phone] , Ph. [facility] CA - AHF - AHT_[facility] [id number] [facility] 2023-07-15 00:00:00 2023-07-15 00:00:00 Lora Figueroa MD: [address] [address] , Ph. [facility] CA - AHF - [facility] [id number] [facility] 2023-07-12 00:00:00 2023-07-12 00:00:00 Outpatient AHT_TRAN_DU C_N [facility] [id number] [facility] 2023-04-01 00:00:00 2023-04-01 00:00:00 Outpatient AHT_TRAN_DU C_N [facility] [id number] [facility] 2023-02-06 00:00:00 2023-02-06 00:00:[address] [facility] [id number] [facility] Results Test Description Test Time Test Comments Results Result Co mments Source [facility] [#/volume] (viral load) in Serum or Plasma by CAROL ANN with probe [id number] 00:00:00* Test Item Value Reference Range Interpretation Comme nts HIV 1 RNA [#/volume] (viral load) in Serum or Plasma by CAROL ANN with probe detection (test code = 26707-1) <20 HIV 1 RNA [Log #/volume] (vi ral load) in Serum or Plasma by CAROL ANN with probe detection (test code = 78050-2) COMMENT [facility] T4 and TSH panel - Serum or [id number] 00:00:00* Test Item Value Reference Range Interpretation Comme nts Thyrotropin [Units/volume] i n Serum or Plasma by Detection limit <= 0.005 mIU/L (test code = 25691-3) 0.701 uIU/mL 0.450-4.500 Thyroxine (T4) free [Mass/volume] in Serum or Plasma (test code = 3024-7) 1.28 NG/dL 0.82-1.77 [facility] (CD4) subset panel - [id number] 00:00:00* Test Item Value Reference Range Interpretation Comme nts CD3+CD4+ (T4 helper) cells [#/volume] in Blood (test code = 62195-6) 521 /uL 359-1519 CD3+CD4+ cells/100 cells in [...] Blood by Automated count (test code = 13016-0) 0 % not estab. Immature granulocytes [#/volume] in Blood by Automated count (test code = 39365-7) 0.0 x10e3/uL 0.0-0.1 [facility] FoundationCom[facility] metabolic [...] Creatinine-based formula (CKD-EPI 2020) (test code = 49344-3) 66 mL/min/1.73 >59 Urea nitrogen/Creatinine [Ma ss [...] Ser um or Plasma (test code = 17926-8) 9.4 mg/dL 8.6-10.2 Protein [Mass/volume] in Ser um or Plasma (test code = 2885-2) 7.5 g/dL 6.0-8.5 Albumin [Mass/volume] in Ser um or Plasma (test code = 1751-7) 4.4 g/dL 3.9-4.9 Globulin [Mass/volume] in Serum by calculation (test code = 29473-6) 3.1 g/dL 1.5-4.5 Bilirubin.total [Mass/volume ] in Serum or Plasma (test code = 1974-2) 0.4 mg/dL 0.0-1.2 Alkaline phosphatase [Enzymatic activity/volume] in Serum or Plasma (test code = 6768-6) 141 IU/L 44-121 H Aspartate aminotransferase [Enzymatic activity/volume] in Serum or Plasma (test code = 1920-8) 20 IU/L 0-40 Alanine aminotransferase [Enzymatic activity/volume] in Serum or Plasma (test code = 1742-6) 15 IU/L 0-44 [facility] Healthcare FoundationCobalamin (Vitamin B12) and folate panel - Serum 2024-06-08 00:00:00* Test Item Value Reference Range Interpretation Comme nts Cobalamin (Vitamin B12) [Mass/volume] in Serum or Plasma (test code = 2132-9) 330 pg/mL 232-1245 Folate [Mass/volume] in Seru m or Plasma (test code = 2284-8) 7.7 NG/mL >3.0 [facility]ine kinase (CK), mb/tojbp2602-47-28 00:00:00* Test Item Value Reference Range Interpretation Comme nts Creatine kinase [Enzymatic activity/volume] in Serum or Plasma (test code = 2157-6) 78 U/L 41-331 Creatine kinase.MB [Mass/vol ume] in Serum or Plasma (test code = 38020-5) 1.2 NG/mL 0.0-10.4 [facility] FoundationTestosterone free and total panel [Mass/volume] - Serum or [id number] 00:00:00* Test Item Value Reference Range Interpretation Comme nts Testosterone [Mass/volume] i n Serum or Plasma (test code = 2986-8) 366 NG/dL 264-916 Testosterone Free [Mass/volu me] in Serum or Plasma (test code = 2991-8) 3.9 pg/mL 6.6-18.1 L [facility] FoundationProstate specific Ag [Mass/volume] in Serum or Plasma 2024-06-08 00:00:00* Test Item Value Reference Range Interpretation Comme nts Prostate specific Ag [Mass/v olume] in Serum or Plasma (test code = 2857-1) 0.8 NG/mL 0.0-4.0 [facility] FoundationIjsvcilmbj54-Hpwasqvsewekov D3+25-Hydroxyvitamin D2 [Mass/volume] in Serum or [id number] 00:00:00* Test Item Value Reference Range Interpretation Comme nts 25-Hydroxyvitamin D3+25-Hydroxyvitamin D2 [Mass/volume] in Serum or Plasma (test code = 19600-9) 42.1 NG/mL 30.0-100.0 [facility] FoundationNuclear Ab [Presence] in [id number] 00:00:00* Test Item Value Reference Range Interpretation Comme nts Nuclear Ab [Presence] in Ser um (test code = 8061-4) NEGATIVE negative [facility] W Auto Differential panel - [id number] 00:00:00* Test Item Value Reference Range Interpretation [...] Blood by Automated count (test code = 79985-9) 1 % not estab. Immature granulocytes [#/volume] in Blood by Automated count (test code = 96929-7) 0.0 x10e3/uL 0.0-0.1 [facility] FoundationComprehensive metabolic [...] Creatinine-based formula (CKD-EPI 2020) (test code = 56827-9) 75 mL/min/1.73 >59 Urea nitrogen/Creatinine [Ma ss [...] Ser um or Plasma (test code = 07868-8) 9.0 mg/dL 8.6-10.2 Protein [Mass/volume] in Ser um or Plasma (test code = 2885-2) 6.3 g/dL 6.0-8.5 Albumin [Mass/volume] in Ser um or Plasma (test code = 1751-7) 4.1 g/dL 3.9-4.9 Globulin [Mass/volume] in Serum by calculation (test code = 33475-5) 2.2 g/dL 1.5-4.5 Bilirubin.total [Mass/volume ] in [...] and total panel [Mass/volume] - Serum or [id number] 00:00:00* Test Item Value Reference Range Interpretation [...] QRS (test code = QRS) 88 ms WV Interval (test code = WV Interval) 104/140 ms QT Interval (test code = QT Interval) 396/405 ms [facility] FoundationChlamydia trachomatis and Neisseria gonorrhoeae rRNA panel - Specimen by CAROL ANN with probe cilykgide2428-12-21 00:00:00* Test Item Value Reference Range Interpretation Comme nts Chlamydia trachomatis rRNA [Presence] in Specimen by CAROL ANN with probe detection (test code = 25069-8) NEGATIVE negative Neisseria gonorrhoeae rRNA [Presence] in Specimen by CAROL ANN with probe detection (test code = 48184-3) NEGATIVE negative [facility] [#/volume] (viral load) in Serum or Plasma by CAROL ANN with probe [id number] 00:00:00* Test Item Value Reference Range Interpretation Comme nts HIV 1 RNA [#/volume] (viral load) in Serum or Plasma by CAROL ANN with probe detection (test code = 20570-5) <20 HIV 1 RNA [Log #/volume] (vi ral load) in Serum or Plasma by CAROL ANN with probe detection (test code = 92530-2) COMMENT [facility] hepatitis 2000 panel - [id number] 00:00:00 * Test Item Value Reference Range Interpretation Comme nts Hepatitis A virus Ab [Presen ce] in Serum by Immunoassay (test code = 74267-6) POSITIVE negative A Hepatitis A virus IgM Ab [Presence] in Serum or Plasma by Immunoassay (test code = 55085-0) NEGATIVE negative Hepatitis B virus surface Ag [Presence] in Serum or Plasma by Immunoassay (test code = 5196-1) NEGATIVE negative Hepatitis B virus surface Ab [Presence] in Serum (test code = 36069-2) REACTIVE Hepatitis B virus core Ab [Presence] in Serum or Plasma by Immunoassay (test code = 57455-8) NEGATIVE negative Laboratory comment [Text] in Report Narrative (test code = 32879-5) RFNOTM Interpretation and review of laboratory results (test code = 98707-7) [facility] Hepatitis C virus IgG Ab [Presence] in Serum or Plasma by Immunoassay (test code = 40548-2) NON REACTIVE non reactive Hepatitis C virus Ab [Presen ce] in Serum or Plasma by Immunoassay (test code = 37445-6) [facility] AIDS [facility] FoundationT-cell helper (CD4) subset panel - [id number] 00:00:00* Test Item Value Reference Range Interpretation Comme nts CD3+CD4+ (T4 helper) cells [#/volume] in Blood (test code = 36868-2) 540 /uL 359-1519 CD3+CD4+ cells/100 cells in [...] Blood by Automated count (test code = 31875-3) 0 % not estab. Immature granulocytes [#/volume] in Blood by Automated count (test code = 31244-3) 0.0 x10e3/uL 0.0-0.1 [facility] FoundationComprehensive metabolic [...] Creatinine-based formula (CKD-EPI 2020) (test code = 72821-5) 81 mL/min/1.73 >59 Urea nitrogen/Creatinine [Ma ss Ratio] in Serum or Plasma (test code = 3097-3) 15 10-24 Sodium [Moles/volume] in Ser um or Plasma (test code = 2951-2) 138 mmol/L 134-144 Potassium [Moles/volume] in Serum or Plasma (test code = 2823-3) 5.2 mmol/L 3.5-5.2 Chloride [Moles/volume] in Serum or Plasma (test code = 5-0) 104 mmol/L 96-106 Carbon dioxide, total [Moles/volume] in Serum or Plasma (test code = 2027-) 23 mmol/L 20-29 Calcium [Mass/volume] in Ser um or Plasma (test code = 19392-1) 9.2 mg/dL 8.6-10.2 Protein [Mass/volume] in Ser um or Plasma (test code = 2885-2) 6.9 g/dL 6.0-8.5 Albumin [Mass/volume] in Ser um or Plasma (test code = 1751-7) 4.4 g/dL 3.9-4.9 Globulin [Mass/volume] in Serum by calculation (test code = 35941-0) 2.5 g/dL 1.5-4.5 Bilirubin.total [Mass/volume ] in [...] Urine by Test strip (test code = 24417-4) TRACE negative/trace Glucose [Presence] in Urine by Test strip (test code = 28829-3) NEGATIVE negative Ketones [Presence] in Urine by Test strip (test code = 2514-8) NEGATIVE negative Hemoglobin [Presence] in Urine by Test strip (test code = 5794-3) NEGATIVE negative Bilirubin.total [Presence] i n Urine by Test strip (test code = 5770-3) NEGATIVE negative Urobilinogen [Mass/volume] i n Urine by Test strip (test code = 24270-1) 0.2 mg/dL 0.2-1.0 Nitrite [Presence] in Urine by Test strip (test code = 5802-4) NEGATIVE negative Microscopic observation [Identifier] in Urine sediment by Light microscopy (test code = 33942-3) SEE BELOW: Leukocytes [#/area] in Urine sediment by Microscopy high power field (test code = 5821-4) 0-5 0-5 Erythrocytes [#/area] in Urine sediment by Microscopy high power field (test code = 70642-2) 0-2 0-2 Epithelial cells [#/area] in Urine sediment by Microscopy high power field (test code = 5787-7) NONE SEEN 0-10 Casts [Presence] in Urine sediment by Light microscopy (test code = 98197-4) NONE SEEN none seen Unidentified crystals [Presence] [...] Healthcare FoundationLipid 1996 panel - Serum or [id number] 00:00:00 * Test Item Value Reference Range [...] or Plasma by calculation (test code = 05850-5) 23 mg/dL 5-40 Cholesterol in LDL [Mass/vol ume] in Serum or Plasma by calculation (test code = 71258-4) 152 mg/dL 0-99 H [facility] FoundationHIV 1 RNA [#/volume] (viral load) in Serum or Plasma by CAROL ANN with probe [id number] 00:00:00* Test Item Value Reference Range Interpretation Comme nts HIV 1 RNA [#/volume] (viral load) in Serum or Plasma by CAROL ANN with probe detection (test code = 74864-7) <20 HIV 1 RNA [Log #/volume] (vi ral load) in Serum or Plasma by CAROL ANN with probe detection (test code = 45372-6) comment [facility] 2000 panel - [id number] 00:00:00 * Test Item Value Reference Range Interpretation Comme nts Hepatitis A virus Ab [Presen ce] in Serum by Immunoassay (test code = 20289-5) positive negative A Hepatitis A virus IgM Ab [Presence] in Serum or Plasma by Immunoassay (test code = 92932-3) negative negative Hepatitis B virus surface Ag [Presence] in Serum or Plasma by Immunoassay (test code = 5196-1) negative negative Hepatitis B virus surface Ab [Presence] in Serum (test code = 30140-6) reactive Hepatitis B virus core Ab [Presence] in Serum or Plasma by Immunoassay (test code = 51944-2) negative negative Laboratory comment [Text] in Report Narrative (test code = 77548-6) rfnotm Interpretation and review of laboratory results (test code = 37446-5) [facility] Hepatitis C virus IgG Ab [Presence] in Serum or Plasma by Immunoassay (test code = 46544-9) non reactive non reactive Hepatitis C virus Ab [Presen ce] in Serum or Plasma by Immunoassay (test code = 17233-9) [facility] (CD4) subset panel - [id number] 00:00:00* Test Item Value Reference Range Interpretation Comme nts CD3+CD4+ (T4 helper) cells [#/volume] in Blood (test code = 53377-6) 745 /uL 359-1519 CD3+CD4+ cells/100 cells in [...] Blood by Automated count (test code = 37161-6) 0 % not estab. Immature granulocytes [#/volume] in Blood by Automated count (test code = 86472-6) 0.0 x10e3/uL 0.0-0.1 [facility] FoundationComprehensive metabolic [...] Creatinine-based formula (CKD-EPI 2020) (test code = 23629-1) 81 mL/min/1.73 >59 Urea nitrogen/Creatinine [Ma ss [...] Ser um or Plasma (test code = 84978-0) 9.1 mg/dL 8.6-10.2 Protein [Mass/volume] in Ser um or Plasma (test code = 2885-2) 6.9 g/dL 6.0-8.5 Albumin [Mass/volume] in Ser um or Plasma (test code = 1751-7) 4.2 g/dL 3.9-4.9 Globulin [Mass/volume] in Serum by calculation (test code = 37816-4) 2.7 g/dL 1.5-4.5 Albumin/Globulin [Mass Ratio ] [...] Urine by Test strip (test code = 30179-9) negative negative/trace Glucose [Presence] in Urine by Test strip (test code = 58002-4) negative negative Ketones [Presence] in Urine by Test strip (test code = 2514-8) negative negative Hemoglobin [Presence] in Uri ne by Test strip (test code = 5794-3) negative negative Bilirubin.total [Presence] i n Urine by Test strip (test code = 5770-3) negative negative Urobilinogen [Mass/volume] i n Urine by Test strip (test code = 55089-7) 0.2 mg/dL 0.2-1.0 Nitrite [Presence] in Urine by Test strip (test code = 5802-4) negative negative Microscopic observation [Identifier] in Urine sediment by Light microscopy (test code = 01670-0) see below: Leukocytes [#/area] in Urine sediment by Microscopy high power field (test code = 5821-4) 0-5 0-5 Erythrocytes [#/area] in Uri ne sediment by Microscopy high power field (test code = 79813-2) none seen 0-2 Epithelial cells [#/area] in Urine sediment by Microscopy high power field (test code = 5787-7) none seen 0-10 Casts [Presence] in Urine se diment by Light microscopy (test code = 97220-9) none seen none seen Bacteria [#/area] in Urine sediment by Microscopy high power field (test code = 5769-5) none seen none seen/few urinalysis reflex (test code = urinalysis reflex) noflex [facility] FoundationLipid 1996 panel - Serum or [id number] 00:00:00 * Test Item Value Reference Range [...] or Plasma by calculation (test code = 88378-1) 33 mg/dL 5-40 Cholesterol in LDL [Mass/vol ume] in Serum or Plasma by calculation (test code = 95320-6) 107 mg/dL 0-99 H AIDS Healthcare FoundationTestosterone free and total panel [Mass/volume] - Serum or [id number] 00:00:00* Test Item Value Reference Range Interpretation [...] [facility] Notes Date/Time Note Provider Source 2024-02-20 10:00:16 Hayder Martinez MD - 02/20/2024 9:30 AM [...] now 2. Male hypogonadism - 208 at [facility] - been low in past had been on cream but no effect and too expensive - he will call if he wants to try injections in which we will repeat labs 3. PSA - PSA 0.5 at [facility] No results found for: "PSA", "CREATININE" Roopa [...] "HGB", "HCT", "MCV", "PLT" Hayder Martinez MD [facility]2024-09-16 10:00:16 Diagnosis Hydrocele, unspecified hydro livan type - Primary Male hypogonadism Other testicular hypofunction [facility]awieim9836-13-64 10:00:16 [facility]ennialRizaarz8296-14-52 11:12:43Upcoming Encounters Health Maintenance Due Date Last [...] this topic Meningococcal Vaccine Aged Out No yazmin jorgito eligible based on patient's age to complete this topic Pneumococcal Vaccine: Pediatrics (0 to 5 Years) and At-Risk Patients (6 to 64 Years) Aged Out No longer eligible b ased on patient's age to complete this topic Rotavirus Vaccines Aged Out No longer eligible based on patient's age to complete this topic [facility]ennialDgyqasp7905-63-77 11:12:43 [facility]ennialKiphuil2763-56-61 11:11:41 Pt called to see if we have scrotal US results, received. Provided pt with fax number for PSA results. [facility]2019-06-27 12:18:[id number] [facility] PATIENT NAME: ROOPA HILLS ADMIT DATE: 11/30/18 ACCOUNT NO: [id number] ROOM NO: AGE: 58 REPORT TYPE: ENDOSCOPY [...] 12:18 PM Procedure Code(s): --- Professional --- 74906, Colonoscopy, flexible; diagnostic, including collection of specimen(s) by brushing or washing, when performed (separate procedure) Diagnosis Code(s): --- Professional --- Z98.0, Intestinal bypass and anastomosis status Z85.048, Personal history of other malignant neoplasm of rectum, rectosigmoid junction, and anus CPT copyright 2017 [employer]. All rights reserved. The codes documented in this report are preliminary and upon medical safety director review may be revised to meet current compliance requirements. Scope In: Scope Out: at 1254 PATIENT NAME: ANTONIOMARCELOROOPA
[2024-07-28] MEDS ORDERED: ONDANSETRON 4 MG/2 ML VIAL ONE (02:57)
[2024-07-28] MEDS ORDERED: KETOROLAC 30 MG/ML INJ ONE (02:58)
[2024-07-28] MEDS ORDERED: MORPHINE 4 MG/ML SYR ONE ×2 (02:58→06:32)
[2024-07-28] MEDS ORDERED: NA CHLORIDE 0.9% 1,000 ML ONE (02:58)
[2024-07-28 03:21] LABS: Absolute Lymphocytes (CBC) 1.2 K/uL (0.7-4.9); Absolute Monocytes 0.7 K/uL (0.1-1.3); Absolute Neutrophil 10.8 K/uL (1.8-8.0); Basophils % 0.3 % (0-1.3); Eosinophils % 0.1 % (0-4.4); Hematocrit 45.9 % (39.6-49.0); Hemoglobin 15.1 g/dL (13.6-17.9); Lymphocytes % 9.3 % (15.3-44.8); MCH 30.1 pg (27.0-35.0); MCHC 32.9 g/dL (32.0-36.0); MCV 91.4 fL (80-100); MPV 8.6 fL (7.6-11.3); Monocytes % 5.7 % (3.3-12.3); Neutrophils % 84.6 % (41.7-73.7); Platelets 282 thou/uL (152-406); RBC Red Blood Cell Count 5.02 M/uL (4.33-5.43); Red Cell Distribution Width 13.9 % (12.1-15.2)
[2024-07-28 03:38] LABS: Albumin 3.6 g/dL (3.4-5.0); Albumin/Globulin Ratio 0.9 (1.1-1.8); Anion Gap 11.3 mEq/L (5.0-15.0); Bilirubin Total 0.6 mg/dL (0.2-1.0); Globulin 3.9 g/dL (2.3-3.5); Potassium 4.3 mEq/L (3.5-5.1); Protein, Total 7.5 g/dL (6.4-8.2)
[2024-07-28 05:56] LABS: Calcium Oxalate Crystals- Ur Few /HPF (None Seen); Sqamous Epithelial None Seen /HPF (None Seen); Urine Bacteria None Seen /HPF (<20); Urine Bilirubin NEGATIVE (Negative); Urine Blood 2+ (Negative); Urine Clarity Extremely Turbid (Clear); Urine Color Yellow (Yellow); Urine Culture Reflex Order NOT NEEDED; Urine Glucose NEGATIVE (Negative); Urine Ketones 3+ (Negative); Urine Micro Reflex YN NO BILL MICROSCOPIC; Urine Mucus Slight /HPF (None Seen); Urine Nitrite NEGATIVE (Negative); Urine Protein 1+ (Negative); Urine RBC >50 /HPF (None Seen); Urine Urobilinogen 1+ (Normal); Urine WBC <5 /HPF (<5); Urine Yeast (Budding) Occasional /HPF (None Seen); Urine pH 5.5 (5.0-7.0)
--- NOTE | 2024-07-28 05:58 | RAD REPORT ---
PROCEDURE: CT Abdomen and Pelvis Without Intravenous Contrast CLINICAL INDICATION: The patient is 64 years old and is Male; Kidney stone. TECHNIQUE: Axial computed tomography images of the abdomen and pelvis without intravenous contrast. Sagittal a nd coronal reformatted images were created and reviewed. This CT exam was performed using one or more of the following dose reduction techniques: automated exposure control, adjustment of the mA a nd/or kV according to patient size, and/or use of iterative reconstruction technique. COMPARISON: CT Abdomen Pelvis 07/24/2024. FINDINGS: LUNG BASES: Dependent bibasilar subsegmental atelectasis. ABDOMEN: LIVER: Unremarkable GALLBLADDER AND BILE DUCTS: Unremarkable No calcified stones. No ductal dilation. PANCREAS: Unremarkable No ductal dilation. SPLEEN: Unremarkable No splenomegaly. ADRENALS: Unremarkable No mass. KIDNEYS AND URETERS: 0.4 x 0.9 cm stone (width x length) demonstrated in the distal left ureter at the approximate S1 vertebral level, with mild to moderate left-sided hydronephrosis and ureteral ectasia. Nonobstructive bilateral intrarenal stones. Retroaortic left renal vein. No additional intraureteral stones. STOMACH AND BOWEL: Unremarkable No obstruction. No mucosal thickening. PELVIS: APPENDIX: No findings to suggest acute appendicitis. BLADDER: Unremarkable No stones. REPRODUCTIVE: Small right-sided hydrocele. ABDOMEN and PELVIS: INTRAPERITONEAL SPACE: Unremarkable No free air. No significant fluid collection. BONES/JOINTS: No acute fracture. No dislocation. SOFT TISSUES: Unremarkable VASCULATURE: Mild calcified atherosclerosis of the abdominal aorta without aneurysmal dilatation. LYMPH NODES: Unremarkable No enlarged lymph nodes. IMPRESSION: 1. 0.4 x 0.9 cm stone demonstrated in the distal left ureter at the approximate S1 vertebral level, with mild to moderate left-sided hydronephrosis and ureteral ectasia. Consider urology consultation given delayed passage and size of stone. 2. Nonobstructive bilateral intrarenal stones. Electronically signed by: Bennie Miranda MD 07/28/2024 05:42 AM [facility] Due to temporary technical issues with the PACS/[employer] reporting system, reports are being gary d by the in-house radiologist without review as a courtesy to ensure prompt reporting the interpreting radiologist is fully responsible for the content of the report. Transcribed Date/Time: 07/28/2024 5:57 AM
--- NOTE | 2024-07-28 06:30 | EDPHYS ---
Physician Documentation [facility] Name: Abraham Craig Age: 64 yrs Sex: Male : 1960 Arrival Date: 07/28/2024 Time: 02:39 Bed 6 Private MD: ED Physician Landon Ambrosio HPI: 07/28 03:17 This 64 yrs old Male presents to ER via Ambulatory with complaints of Possible Kidney rt Stone. 03:17 Patient had a recent diagnosis of a 7 mm left ureteral stone about 4 days ago. States rt that he has had persistent pain since then, worsening tonight. Associated nausea vomiting. Denies other acute complaints at this time, symptoms are moderate in severity, no other aggravating or alleviating factors.. Historical: - Allergies: 02:50 No Known Allergies; br2 - PMHx: 02:50 HIV positive; Kidney stone; br2 - Immunization history:: Adult Immunizations not up to date. - Infectious Disease History:: HIV. - Social history:: Smoking status: Patient denies any tobacco usage or history of. Patient/guardian denies using alcohol, street drugs. - Family history:: not pertinent. ROS: 03:17 Constitutional: Negative for fever, chills, and weight loss, Cardiovascular: Negative rt for chest pain, palpitations, and edema, Respiratory: Negative for shortness of breath, cough, wheezing, and pleuritic chest pain, MS/Extremity: Negative for injury and deformity, Skin: Negative for injury, rash, and discoloration, 03:17 Abdomen/GI: Positive for abdominal pain, nausea, 03:17 Back: Positive for flank pain, Negative for decreased range of motion, Exam: 03:17 Constitutional: This is a well developed, well nourished patient who is awake, alert, rt and in no acute distress. Head/Face: Normocephalic, atraumatic. Chest/axilla: Normal chest wall appearance and motion. Nontender with no deformity. No lesions are appreciated. Cardiovascular: Regular rate and rhythm with a normal S1 and S2. No gallops, murmurs, or rubs. Normal PMI, no JVD. No pulse deficits. Respiratory: Lungs have equal breath sounds bilaterally, clear to auscultation and percussion. No rales, rhonchi or wheezes noted. No increased work of breathing, no retractions or nasal flaring. Abdomen/GI: Soft, non-tender, with normal bowel sounds. No distension or tympany. No guarding or rebound. No evidence of tenderness throughout. Skin: Warm, dry with normal turgor. Normal color with no rashes, no lesions, and no evidence of cellulitis. MS/ Extremity: Pulses equal, no cyanosis. Neurovascular intact. Full, normal range of motion. Neuro: Awake and alert, GCS 15, oriented to person, place, time, and situation. Cranial nerves II-XII grossly intact. Motor strength 5/5 in all extremities. Sensory grossly intact. Cerebellar exam normal. Normal gait. Vital Signs: 02:47 BP 151 / 79; Pulse 67; Resp 18; Temp 97.8(O); Pulse Ox 98% on R/A; Weight 68.04 kg; br2 Height 5 ft. 10 in. ; Pain 10/10; 02:47 BP 151 / 79; Pulse 67; Resp 18; Temp 97.8; Pulse Ox 94% ; Weight 68.04 kg; Height 5 ft. bm8 10 in. ; Pain 10/10; 04:41 BP 109 / 55; Pulse 59; Resp 18; Temp 97.8; Pulse Ox 95% ; Pain 0/10; bm8 05:56 BP 125 / 64; Pulse 55; Resp 18; Temp 97.8; Pulse Ox 99% ; Pain 3/10; bm8 02:47 Body Mass Index 21.52 (68.04 kg, 177.8 cm) bm8 02:47 Pain Scale: Adult br2 02:47 Pain Scale: Adult bm8 04:41 Pain Scale: Adult bm8 05:56 Pain Scale: Adult bm8 [place] Coma Score: 03:04 Eye Response: spontaneous(4). Motor Response: obeys commands(6). Verbal Response: bm8 oriented(5). Total: 15. 05:56 Eye Response: spontaneous(4). Motor Response: obeys commands(6). Verbal Response: bm8 oriented(5). Total: 15. MDM: 02:47 Medical Screening Exam initiated rt 07:17 Differential Diagnosis Kidney stone, infected kidney stone. Data reviewed: vital signs, rt nurses notes, lab test result(s). Consideration of Admission/Observation Escalation of care including admission/observation considered. Offered to transfer patient for kidney stone that is not moving, patient states that he does not wish to be transferred at this time, that pain is well-controlled, states that he will follow-up with his urologist as an outpatient. Shared decision-making was employed, patient was instructed that he may return at any time should he change his mind or if his pain worsens.. I considered the following discharge prescriptions or medication management in the emergency department Medications were administered in the Emergency Department. See MAR. Independent interpretation of the following test(s) in the Emergency Department CT Scan: My interpretation is Unchanged ureteral stone seen on interpretation of CT scan images. Care significantly affected by the following chronic conditions: Kidney stones. Counseling: I had a detailed discussion with the patient and/or guardian regarding the historical points, exam findings, and any diagnostic results supporting the discharge/admit diagnosis, lab results, radiology results, the need for outpatient follow up, to return to the emergency department if symptoms worsen or persist or if there are any questions or concerns that arise at home. Response to treatment: the patient's symptoms have markedly improved after treatment. 07/28 02:52 Order name: CBC with Diff; Complete Time: 03:46 rt 07/28 02:52 Order name: CMP; Complete Time: 03:46 rt 07/28 02:52 Order name: UAM; Complete Time: 06:18 rt 07/28 02:52 Order name: CT Abd/Pelvis - Without Contrast; Complete Time: 06:18 rt Administered Medications: 03:03 Drug: NS 0.9% IV 1000 ml IV at 1000 ml once; to be given as a bolus over 60 minutes bm8 Route: IV; Rate: 1000 ml; Site: right antecubital; 05:58 Follow up: Response: No adverse reaction; IV Status: Completed infusion; IV Intake: bm8 1000ml 03:03 Drug: morphine IVP or IV 4 mg IVP once over 4 mins Route: IVP; Infused Over: 4 mins; bm8 Site: right antecubital; 05:57 Follow up: Response: No adverse reaction bm8 03:03 Drug: Ondansetron IVP 4 mg IVP once; over 2 minutes Route: IVP; Site: right antecubital;bm8 05:57 Follow up: Response: No adverse reaction bm8 03:03 Drug: Ketorolac IVP 15 mg IVP once Route: IVP; Site: right antecubital; bm8 05:57 Follow up: Response: No adverse reaction bm8 06:33 Drug: morphine IVP or IV 4 mg IVP once over 4 mins Route: IVP; Infused Over: 4 mins; bm8 Site: right antecubital; 06:43 Follow up: Response: No adverse reaction bm8 Disposition Summary: 07/28/24 06:29 Discharge Ordered Notes: Location: Home rt Problem: new rt Symptoms: have improved rt Condition: Stable rt Diagnosis - Calculus of ureter rt Followup: rt - With: Private Physician - When: 2 - 3 days - Reason: Discharge Instructions: - Discharge Summary Sheet rt - Kidney Stones rt Forms: - Medication Reconciliation Form rt - Antibiotic Education rt - Prescription Opioid Use rt - Patient Portal Instructions rt - Leadership Thank You Letter rt Prescriptions: - codeine sulfate 30 mg Oral tablet - take 1 tablet ORAL route every 6 hours as needed for pain; 15 tablet; Refills: rt 0, Product Selection Permitted - tamsulosin 0.4 mg Oral capsule - take 1 capsule ORAL route every 24 hours; 14 capsule; Refills: 0, Product rt Selection Permitted Signatures: Dispatcher [employer] EDMS Landon Ambrosio MD MD rt Davin Shi RN RN bm8 Fiona Michael, RN RN br2 Corrections: (The following items were deleted from the chart) 02:52 02:52 CBC+H.LAB.BRZ ordered. EDMS EDMS 02:52 02:52 COMPREHENSIVE METABOLIC PANEL+C.LAB.BRZ ordered. EDMS EDMS 02:52 02:52 Urinalysis W/Microscopic+U.LAB.BRZ ordered. EDMS EDMS 02:52 02:52 Abdomen Pelvis Wo Con+CT.RAD.BRZ ordered. EDMS EDMS
--- NOTE | 2024-07-28 06:30 | ER ---
Nurse's Notes [facility] Name: Abraham Craig Age: 64 yrs Sex: Male : 1960 Arrival Date: 07/28/2024 Time: 02:39 Bed 6 Private MD: Diagnosis: Calculus of ureter Presentation: 07/28 02:47 Chief complaint: Patient states: LLQ PAIN AND RADIATES TO LEFT FLANK. PT STATES HE HAS br2 A KIDNEY STONE AND HASN'T PASSED IT. Coronavirus screen: Client denies travel out of the [place] in the last 14 days. Ebola Screen: Patient denies exposure to infectious person. Initial Sepsis Screen: Does the patient meet any 2 criteria? No. Patient's initial sepsis screen is negative. Does the patient have a suspected source of infection? No. Patient's initial sepsis screen is negative. Risk Assessment: Do you want to hurt yourself or someone else? Patient reports no desire to harm self or others. Onset of symptoms was July 23, 2024. 02:47 Method Of Arrival: Ambulatory br2 02:47 Acuity: ZORAN 3 br2 Triage Assessment: 02:47 General: Appears distressed, uncomfortable, Behavior is calm, cooperative, appropriate bm8 for age. Pain: Complains of pain in left mid back, anterior aspect of left lateral abdomen and posterior aspect of left lateral abdomen Pain currently is 10 out of 10 on a pain scale. Quality of pain is described as crampy, sharp. EENT: No deficits noted. No signs and/or symptoms were reported regarding the EENT system. Neuro: No deficits noted. Level of Consciousness is awake, alert, obeys commands, Oriented to person, place, time, situation, Appropriate for age. Cardiovascular: Heart tones S1 S2 present Capillary refill < 3 seconds in bilateral fingers Patient's skin is warm and dry. Respiratory: Airway is patent Respiratory effort is even, unlabored, Respiratory pattern is regular, symmetrical, Breath sounds are clear bilaterally. GI: Abdomen is flat, non-distended, Bowel sounds present X 4 quads. Reports lower abdominal pain. : Reports pain in suprapubic area flank(s), in lower back. Derm: No signs and/or symptoms reported regarding the dermatologic system. Musculoskeletal: No signs and/or symptoms reported regarding the musculoskeletal system. Historical: - Allergies: 02:50 No Known Allergies; br2 - PMHx: 02:50 HIV positive; Kidney stone; br2 - Immunization history:: Adult Immunizations not up to date. - Infectious Disease History:: HIV. - Social history:: Smoking status: Patient denies any tobacco usage or history of. Patient/guardian denies using alcohol, street drugs. - Family history:: not pertinent. Screenin:04 [facility] ED Fall Risk Assessment (Adult) History of falling in the last 3 months, bm8 including since admission No falls in past 3 months (0 pts) Confusion or Disorientation No (0 pts) Intoxicated or Sedated No (0 pts) Impaired Gait No (0 pts) Mobility Assist Device Used No (0 pt) Altered Elimination No (0 pt) Score/Fall Risk Level 0 - 2 = Low Risk Oriented to surroundings, Maintained a safe environment, Educated pt \T\ family on fall prevention, incl call for assistance when getting out of bed, Assessed \T\ reinforced patient's understanding of fall precautions, Hourly rounding (assess needs \T\ fall precautionary measures) done, Used ambulatory aids as needed (educated on \T\ assisted with), Used gait belt as appropriate. Abuse screen: Denies threats or abuse. Nutritional screening: No deficits noted. Tuberculosis screening: No symptoms or risk factors identified. Assessment: 03:04 Reassessment: see triage assessment. bm8 03:21 Reassessment: Patient appears in no apparent distress at this time. Patient and/or bm8 family updated on plan of care and expected duration. Pain level reassessed. Patient is alert, oriented x 3, equal unlabored respirations, skin warm/dry/pink. Patient states feeling better. Patient states symptoms have improved. Pain: Pain currently is 1 out of 10 on a pain scale. 04:41 Reassessment: Patient appears in no apparent distress at this time. Patient and/or bm8 family updated on plan of care and expected duration. Pain level reassessed. Patient is alert, oriented x 3, equal unlabored respirations, skin warm/dry/pink. pt is resting with eyes closed breathing is even unlabored with symmetrical rise and fall of chest. Patient denies pain at this time. Patient states feeling better. Patient states symptoms have improved. GI: Abd is soft and non tender. 05:56 Reassessment: Patient appears in no apparent distress at this time. Patient and/or bm8 family updated on plan of care and expected duration. Pain level reassessed. Patient is alert, oriented x 3, equal unlabored respirations, skin warm/dry/pink. Patient states feeling better. Patient states symptoms have improved. Pain: Pain currently is 3 out of 10 on a pain scale. Neuro: Level of Consciousness is awake, alert, obeys commands, Oriented to person, place, time, situation, Appropriate for age. Cardiovascular: Denies chest pain, Capillary refill < 3 seconds in bilateral fingers Patient's skin is warm and dry. Respiratory: Airway is patent Respiratory effort is even, unlabored, Respiratory pattern is regular, symmetrical, Breath sounds are clear bilaterally. Vital Signs: 02:47 BP 151 / 79; Pulse 67; Resp 18; Temp 97.8(O); Pulse Ox 98% on R/A; Weight 68.04 kg; br2 Height 5 ft. 10 in. ; Pain 10/10; 02:47 BP 151 / 79; Pulse 67; Resp 18; Temp 97.8; Pulse Ox 94% ; Weight 68.04 kg; Height 5 ft. bm8 10 in. ; Pain 10/10; 04:41 BP 109 / 55; Pulse 59; Resp 18; Temp 97.8; Pulse Ox 95% ; Pain 0/10; bm8 05:56 BP 125 / 64; Pulse 55; Resp 18; Temp 97.8; Pulse Ox 99% ; Pain 3/10; bm8 02:47 Body Mass Index 21.52 (68.04 kg, 177.8 cm) bm8 02:47 Pain Scale: Adult br2 02:47 Pain Scale: Adult bm8 04:41 Pain Scale: Adult bm8 05:56 Pain Scale: Adult bm8 [place] Coma Score: 03:04 Eye Response: spontaneous(4). Motor Response: obeys commands(6). Verbal Response: bm8 oriented(5). Total: 15. 05:56 Eye Response: spontaneous(4). Motor Response: obeys commands(6). Verbal Response: bm8 oriented(5). Total: 15. ED Course: 02:40 Patient arrived in ED. [email or web address] 02:42 Landon Ambrosio MD is Attending Physician. rt 02:47 Arm band placed on right wrist. bm8 02:49 Triage completed. br2 03:04 Patient has correct armband on for positive identification. Placed in gown. Bed in low bm8 position. Call light in reach. Side rails up X 1. Adult w/ patient. Client placed on continuous cardiac and pulse oximetry monitoring. NIBP monitoring applied. Pulse ox on. NIBP on. Door closed. Warm blanket given. Pillow given. Verbal reassurance given. Head of bed elevated. 03:04 No provider procedures requiring assistance completed. Initial lab(s) drawn, by kimberly márquez sent to lab. Inserted saline lock: 20 gauge in right antecubital area, using aseptic technique. Blood collected. Flushed with 10 mL NS. Patient maintains SpO2 saturation greater than 95% on room air. 03:21 Davin Shi, RN is Primary Nurse. bm8 03:24 CT Abd/Pelvis - Without Contrast In Process Unspecified. EDMS 06:43 Provided Education on: post er care. bm8 06:43 IV discontinued, intact, bleeding controlled, No redness/swelling at site. Pressure bm8 dressing applied. Administered Medications: 03:03 Drug: NS 0.9% IV 1000 ml IV at 1000 ml once; to be given as a bolus over 60 minutes bm8 Route: IV; Rate: 1000 ml; Site: right antecubital; 05:58 Follow up: Response: No adverse reaction; IV Status: Completed infusion; IV Intake: bm8 1000ml 03:03 Drug: morphine IVP or IV 4 mg IVP once over 4 mins Route: IVP; Infused Over: 4 mins; bm8 Site: right antecubital; 05:57 Follow up: Response: No adverse reaction bm8 03:03 Drug: Ondansetron IVP 4 mg IVP once; over 2 minutes Route: IVP; Site: right antecubital;bm8 05:57 Follow up: Response: No adverse reaction bm8 03:03 Drug: Ketorolac IVP 15 mg IVP once Route: IVP; Site: right antecubital; bm8 05:57 Follow up: Response: No adverse reaction bm8 06:33 Drug: morphine IVP or IV 4 mg IVP once over 4 mins Route: IVP; Infused Over: 4 mins; bm8 Site: right antecubital; 06:43 Follow up: Response: No adverse reaction bm8 Medication: 03:04 VIS not applicable for this client. bm8 Intake: 05:58 IV: 1000ml; Total: 1000ml. bm8 Outcome: 06:29 Discharge ordered by . rt 06:43 Discharged to home ambulatory, bm8 06:43 Condition: stable 06:43 Discharge instructions given to patient, family, Instructed on discharge instructions, follow up and referral plans. no drinking with medication, no driving heavy equipment, medication usage, safety practices, Demonstrated understanding of instructions, follow-up care, medications, Prescriptions given X 2, 06:44 Patient left the ED. bm8 Signatures: Dispatcher [employer] EDMS Tammy [place] [email or web address] Landon Ambrosio MD MD rt Davin Shi, RN RN bm8 Fiona Michael, RN RN br2
[2024-07-28 14:08] VITALS: TEMP 97.8
[2024-07-28 14:11] VITALS: BP 125/64; O2SAT 99
== END 2024-07-28 06:44 | disposition home or self-care (01) ==
LOC: ER 02:39
DX: N20.1 Calculus of ureter (principal); Z87.442 Personal history of urinary calculi; Z21 Asymptomatic human immunodeficiency virus [HIV] infection status
CPT/HCPCS: 96361; 85025; 81001; 36415; 80053; 74176; 96375; 96374; 99284; J2405; J7030